=== PATIENT | male | born 1975 | race Caucasian/White ===

== ENCOUNTER 2016-11-12 12:23 | Emergency (ER) | payer BC ==
[2016-11-12] MEDS ORDERED: Morphine INJ* 4 MG/ML 1 ML SYRINGE IV ONE (14:05)
[2016-11-12] MEDS ORDERED: Pantoprazole IV* 40 MG IV ONE (14:05)
[2016-11-12] MEDS ORDERED: Ondansetron INJ* 2 MG/ML VIAL IV ONE (14:05)
[2016-11-12 14:36] LABS: Hematocrit 49 % (42-52); Hemoglobin 17.1 g/dl (14.0-18.0); Mean Corpuscular HGB Conc 35 g/dl (31-36); Mean Corpuscular Hemoglobin 34 pg (27-31); Mean Corpuscular Volume 96 fL (80-94); Mean Platelet Volume 9 um3 (7.4-10.4); Red Blood Count 5.05 10^6/ul (4.0-5.4); Red Cell Distribution Width 12 % (10.5-15); White Blood Count 8.3 10^3/ul (3.5-10.8)
[2016-11-12 14:50] LABS: Albumin 4.6 g/dL (3.2-5.2); BUN/Creatinine Ratio 19.1 (8-20); C Reactive Protein 3.87 mg/L (< 5.00); Calcium 9.5 mg/dL (8.6-10.3); EGFR African American 122.4 (>60); EGFR Non-African American 95.2 (>60); Globulin 2.9 g/dL (2-4); Magnesium 1.9 mg/dL (1.9-2.7); Total Bilirubin 1.1 mg/dL (0.2-1.0); Total Protein 7.5 g/dL (6.4-8.9)
[2016-11-12] MEDS: NS 0.9% 1000 ML* 2,000 ML IV ONE ×2 (14:50→16:07)
[2016-11-12 14:52] LABS: Troponin I 0.01 ng/mL (<0.04)
--- NOTE | 2016-11-12 14:53 | RAD ---
Indication: Right upper quadrant pain. Real-time sonography of the right upper quadrant was performed. The liver is normal in size. It measures up to 18 cm in length. No focal lesions or intrahepatic duct dilatation is noted. The gallbladder demonstrates no gallstones, pericholecystic fluid or wall thickening. The common duct measures 3.3 mm. The right kidney measures 11.7 x 5.5 x 5.1 cm. No hydronephrosis is noted. The pancreas demonstrates no mass or pancreatic duct dilatation. IMPRESSION: No evidence of cholelithiasis or biliary duct dilatation is noted.
[2016-11-12 14:54] LABS: Potassium 4.2 mmol/L (3.5-5.0)
--- NOTE | 2016-11-12 15:23 | RAD ---
Indication: Right chest discomfort. 2 views of the chest including dual energy PA views demonstrate no mediastinal shift. Heart is of normal size and configuration. Lung ruiz are clear. IMPRESSION: No active cardiopulmonary disease is noted.
[2016-11-12 15:53] LABS: Urine Bacteria Absent (Absent); Urine Bilirubin Negative (Negative); Urine Glucose Negative (Negative); Urine Nitrite Negative (Negative)
[2016-11-12 16:35] VITALS: BP 143/105
--- NOTE | 2016-11-12 16:43 | ED ---
Pepper Barnard Alok, scribed for Diann Singer MD on 11/12/16 at 1325 . Complex/Multi-Sys Presentation - HPI Summary HPI Summary: 41M presents to the ED for lung congestion for the past few weeks. Pt states what began as seasonal allergies managed by Maribel which improved his sinus congestion progressed into lung congestion worse on the right side for the past 5 days. Pt notes SOB and productive cough with white sputum. Pt denies fever or fatigue. Pt denies h/o asthma. Pt also notes RUQ aching pain for the past few weeks. Pt also notes a "choking" sensation after ingesting food for days at the same place as his RUQ pain. Pt notes new diet consisting of higher fats. Pt denies h/o abd surgery and denies h /o DVT/PE. Pt drinks ETOH heavily and denies tobacco/drugs. Pt last had ETOH yesterday. Pt has chronic back pain. - History Of Current Complaint Chief Complaint: EDGeneral Hx Obtained From: Patient Onset/Duration: Gradual Onset, Lasting Weeks, Still Present Timing: Constant Severity Currently: Moderate Severity Initially: Moderate Location: Pain At: - RUQ Aggravating Factor(s): ingesting food Associated Signs And Symptoms: Positive: SOB, Cough, Abdominal Pain, Other - Lung congestion. Negative: Fever - Allergies/Home Medications Allergies/Adverse Reactions: Allergies Allergy/AdvReac Type Severity Reaction Status Date / Time Macrolides and Ketolides Allergy GI Upset Verified 11/12/16 13:00 PMH/Surg Hx/FS Hx/Imm Hx Cardiovascular History: Denies: Hx Deep Vein Thrombosis Respiratory History: Denies: Hx Asthma Infectious Disease History: No Infectious Disease History: Denies: Traveled Outside the [place] in Last 30 Days - Family History Known Family History: Positive: Other - Yes- ETOH abuse, Gallbladder disease - Social History Occupation: Employed Full-time Lives: Alone Alcohol Use: Daily Alcohol Amount: 1/2 pint liquor per day Substance Use Type: Reports: None Hx Tobacco Use: No Smoking Status (MU): Never Smoked Tobacco Review of Systems Negative: Fever, Fatigue Positive: Shortness Of Breath, Cough, Other - lung congestion Positive: Abdominal Pain Positive: Other - back pain (chronic) All Other Systems Reviewed And Are Negative: Yes Physical Exam Triage Information Reviewed: Yes Vital Signs On Initial Exam: Initial Vitals Temp Pulse Resp BP Pulse Ox 97.7 F 115 20 170/114 98 11/12/16 12:33 11/12/16 12:33 11/12/16 12:33 11/12/16 12:33 11/12/16 12:33 Vital Signs Reviewed: Yes Appearance: Positive: Well-Appearing, No Pain Distress Skin: Positive: Warm, Skin Color Reflects Adequate Perfusion, Dry Eyes: Positive: EOMI, TANYA ENT: Positive: Pharynx normal, TMs normal Neck: Positive: Supple, Nontender Respiratory/Lung Sounds: Positive: Clear to Auscultation, Breath Sounds Present. Negative: Rales, Rhonchi, Wheezes Cardiovascular: Positive: Tachycardia, Other - No gallop. Negative: Murmur, Rub Abdomen Description: Positive: Soft, Other: - No rebound. RUQ tenderness.. Negative: Distended, Guarding Bowel Sounds: Positive: Present Musculoskeletal: Positive: Strength/ROM Intact. Negative: Edema Left, Edema Right Neurological: Positive: Sensory/Motor Intact, Alert, Oriented to Person Place, Time, CN Intact II-III Psychiatric: Positive: Affect/Mood Appropriate Diagnostics - Vital Signs Vital Signs Temp Pulse Resp BP Pulse Ox 11/12/16 13:02 108 17 169/123 97 11/12/16 13:00 98.4 F 108 13 169/123 97 11/12/16 12:48 117 97 11/12/16 12:33 97.7 F 115 20 170/114 98 - Laboratory Lab Results: Lab Results 11/12/16 11/12/16 11/12/16 Range/Units 14:20 14:20 14:20 WBC 8.3 (3.5-10.8) 10^3/ul RBC 5.05 (4.0-5.4) 10^6/ul Hgb 17.1 (14.0-18.0) g/dl Hct 49 (42-52) % MCV 96 H (80-94) fL MCH 34 H (27-31) pg MCHC 35 (31-36) g/dl RDW 12 (10.5-15) % Plt Count 159 (150-450) 10^3/ul MPV 9 (7.4-10.4) um3 Neut % (Auto) 62.5 (38-83) % Lymph % (Auto) 24.2 L (25-47) % [place] % (Auto) 7.5 (1-9) % Eos % (Auto) 5.2 (0-6) % Baso % (Auto) 0.6 (0-2) % Absolute Neuts (auto) 5.2 (1.5-7.7) 10^3/ul Absolute Lymphs (auto) 2.0 (1.0-4.8) 10^3/ul Absolute Monos (auto) 0.6 (0-0.8) 10^3/ul Absolute Eos (auto) 0.4 (0-0.6) 10^3/ul Absolute Basos (auto) 0.1 (0-0.2) 10^3/ul Absolute Nucleated RBC 0.01 10^3/ul Nucleated RBC % 0.1 D-Dimer, Quantitative (Less Than 230) ng/mL Sodium 134 (133-145) mmol/L Potassium 4.2 (3.5-5.0) mmol/L Chloride 97 L (101-111) mmol/L Carbon Dioxide 21 L (22-32) mmol/L Anion Gap 16 H (2-11) mmol/L BUN 17 (6-24) mg/dL Creatinine 0.89 (0.67-1.17) mg/dL Est GFR ( Amer) 122.4 (>60) Est GFR (Non-Af Amer) 95.2 (>60) BUN/Creatinine Ratio 19.1 (8-20) Glucose 75 (70-100) mg/dL Lactic Acid 0.7 (0.5-2.0) mmol/L Calcium 9.5 (8.6-10.3) mg/dL Magnesium 1.9 (1.9-2.7) mg/dL Total Bilirubin 1.10 H (0.2-1.0) mg/dL AST 56 H (13-39) U/L ALT 82 H (7-52) U/L Alkaline Phosphatase 49 (34-104) U/L Troponin I 0.01 (<0.04) ng/mL C-Reactive Protein 3.87 (< 5.00) mg/L Total Protein 7.5 (6.4-8.9) g/dL Albumin 4.6 (3.2-5.2) g/dL Globulin 2.9 (2-4) g/dL Albumin/Globulin Ratio 1.6 (1-3) Lipase 29 (11.0-82.0) U/L Urine Color Urine Appearance Urine pH (5-9) Ur Specific [place] (1.010-1.030) Urine Protein (Negative) Urine Ketones (Negative) Urine Blood (Negative) Urine Nitrate (Negative) Urine Bilirubin (Negative) Urine Urobilinogen (Negative) Ur Leukocyte Esterase (Negative) Urine WBC (Auto) (Absent) Urine RBC (Auto) (Absent) Ur Squamous Epith Cells (Absent) Urine Bacteria (Absent) Hyaline Casts (Absent) Urine Glucose (Negative) 11/12/16 11/12/16 Range/Units 14:20 15:40 WBC (3.5-10.8) 10^3/ul RBC (4.0-5.4) 10^6/ul Hgb (14.0-18.0) g/dl Hct (42-52) % MCV (80-94) fL MCH (27-31) pg MCHC (31-36) g/dl RDW (10.5-15) % Plt Count (150-450) 10^3/ul MPV (7.4-10.4) um3 Neut % (Auto) (38-83) % Lymph % (Auto) (25-47) % [place] % (Auto) (1-9) % Eos % (Auto) (0-6) % Baso % (Auto) (0-2) % Absolute Neuts (auto) (1.5-7.7) 10^3/ul Absolute Lymphs (auto) (1.0-4.8) 10^3/ul Absolute Monos (auto) (0-0.8) 10^3/ul Absolute Eos (auto) (0-0.6) 10^3/ul Absolute Basos (auto) (0-0.2) 10^3/ul Absolute Nucleated RBC 10^3/ul Nucleated RBC % D-Dimer, Quantitative < 200 (Less Than 230) ng/mL Sodium (133-145) mmol/L Potassium (3.5-5.0) mmol/L Chloride (101-111) mmol/L Carbon Dioxide (22-32) mmol/L Anion Gap (2-11) mmol/L BUN (6-24) mg/dL Creatinine (0.67-1.17) mg/dL Est GFR ( Amer) (>60) Est GFR (Non-Af Amer) (>60) BUN/Creatinine Ratio (8-20) Glucose (70-100) mg/dL Lactic Acid (0.5-2.0) mmol/L Calcium (8.6-10.3) mg/dL Magnesium (1.9-2.7) mg/dL Total Bilirubin (0.2-1.0) mg/dL AST (13-39) U/L ALT (7-52) U/L Alkaline Phosphatase (34-104) U/L Troponin I (<0.04) ng/mL C-Reactive Protein (< 5.00) mg/L Total Protein (6.4-8.9) g/dL Albumin (3.2-5.2) g/dL Globulin (2-4) g/dL Albumin/Globulin Ratio (1-3) Lipase (11.0-82.0) U/L Urine Color Yellow Urine Appearance Clear Urine pH 5.0 (5-9) Ur Specific [place] 1.025 (1.010-1.030) Urine Protein 1+(30 mg/dl) H (Negative) Urine Ketones 2+ H (Negative) Urine Blood Negative (Negative) Urine Nitrate Negative (Negative) Urine Bilirubin Negative (Negative) Urine Urobilinogen Negative (Negative) Ur Leukocyte Esterase Negative (Negative) Urine WBC (Auto) Absent (Absent) Urine RBC (Auto) Absent (Absent) Ur Squamous Epith Cells Present H (Absent) Urine Bacteria Absent (Absent) Hyaline Casts Present H (Absent) Urine Glucose Negative (Negative) Result Diagrams: 11/12/16 14:20 11/12/16 14:20 Lab Statement: Any lab studies that have been ordered have been reviewed, and results considered in the medical decision making process. - Radiology CXR Xray Interpretation: Positive (See Comments) - IMPRESSION: NO ACTIVE CARDIOPULMONARY DISEASE IS NOTED. Radiology Interpretation Completed By: Radiologist - EKG 1241 Cardiac Rate: Tachycardia - 113 bpm EKG Rhythm: Sinus Tachycardia EKG Interpretation: Non-specific T-waves changes - Additional Comments Diagnostic Additional Comments: Gallbladder US - IMPRESSION: No evidence of cholelithiasis or biliary duct dilatation is noted. Re-Evaluation - Re-Evaluation First Eval Re-Evaluation Time: 15:38 Change: Improved Comment: Pt feels much improved following protonics and fluids treatment Complex Multi-Symp Course/Dx Course Of Treatment: Really nice 41 year old male who drinks about 1/4 pint per day with what ends up likely being esophagitis and bronchitis. Initially his heart rate was about 100 but by the nighat of the visit it was 94 , my guess is he may have mild withdrawel although he denies ever having symptoms. We had a very nice conversation about harm reduction techniques he can use - Diagnoses Provider Diagnoses: Bronchitis, GERD (gastroesophageal reflux disease) Discharge - Discharge Plan Condition: Stable Disposition: HOME Prescriptions: Azithromyxin NAREN (NF) [Z-Naren (Zithromax) 250 mg tabs #6] 2 tab PO .TODAY, THEN 1 DAILY #6 tab DOXYcycline CAP(*) [DOXYcycline 100MG CAP(*)] 100 mg PO BID #14 cap Pantoprazole TAB (NF) [Protonix TAB (NF)] 40 mg PO DAILY #30 tab Patient Education Materials: Acute Bronchitis (ED), Gastroesophageal Reflux Disease (ED) Referrals: [facility] [place] [facility] [Outside] Non Staff,Doctor [Primary Care Provider] - The documentation as recorded by the Pepper feng Alok accurately reflects the service I personally performed and the decisions made by me, Diann Singer MD.
== END 2016-11-12 16:52 | disposition home or self-care (01) ==
LOC: ED 12:23
DX: J40 Bronchitis, not specified as acute or chronic (principal); K21.9 Gastro-esophageal reflux disease without esophagitis; R10.11 Right upper quadrant pain; R06.02 Shortness of breath; R05 Cough; M54.9 Dorsalgia, unspecified
CPT/HCPCS: 36415; 71020; 76705; 80053; 81003; 81015; 83605; 83690; 83735; 84484; 85025; 85379; 86140; 93005; 96374; 96375; 99284; J2270; J2405

== ENCOUNTER 2017-05-20 06:55 | Observation (INO) | payer BC ==
[2017-05-20] MEDS ORDERED: Ondansetron INJ* 2 MG/ML VIAL IV ONE (08:03)
[2017-05-20] MEDS ORDERED: NS 0.9% 1000 ML* 1,000 ML IV ONE (08:03)
[2017-05-20] MEDS ORDERED: Morphine INJ* 4 MG/ML 1 ML CARPUJECT IV ONE (08:03)
[2017-05-20 08:30] LABS: Comments Flag Yes; Hematocrit 46 % (42-52); Hemoglobin 16.6 g/dl (14.0-18.0); Mean Corpuscular HGB Conc 36 g/dl (31-36); Mean Corpuscular Hemoglobin 34 pg (27-31); Mean Corpuscular Volume 95 fL (80-94); Mean Platelet Volume 8 um3 (7.4-10.4); Red Blood Count 4.88 10^6/ul (4.0-5.4); Red Cell Distribution Width 13 % (10.5-15); White Blood Count 10.8 10^3/ul (3.5-10.8)
[2017-05-20 08:31] LABS: Add Diff/Slide Review? Slide Review Added
[2017-05-20 08:44] LABS: Albumin 4.2 g/dL (3.2-5.2); BUN/Creatinine Ratio 14.3 (8-20); C Reactive Protein 85.84 mg/L (< 5.00); Calcium 9.5 mg/dL (8.6-10.3); EGFR African American 143.9 (>60); EGFR Non-African American 111.9 (>60); Globulin 3.2 g/dL (2-4); Total Bilirubin 0.7 mg/dL (0.2-1.0); Total Protein 7.4 g/dL (6.4-8.9)
[2017-05-20] MEDS ORDERED: Potassium Chlor TAB* 20 MEQ TAB.ER PO ONE (09:47)
[2017-05-20] MEDS ORDERED: Iohexol 300* (CONTRAST) 10 ML SDV IV ONE (10:11)
[2017-05-20 11:00] LABS: Urine Bilirubin Negative (Negative); Urine Glucose Negative (Negative); Urine Nitrite Negative (Negative)
--- NOTE | 2017-05-20 11:05 | RAD ---
INDICATION: Lower abdominal and rectal pain. Small volume of rectal bleeding. COMPARISON: No relevant prior exams available on [place] [facility] [place]. TECHNIQUE: Multidetector CT images were obtained from the lung bases to the ischial tuberosities with 109 mL Omnipaque 300 IV and oral contrast. Multiplanar reformation. REPORT: Minimal RIGHT dependent subsegmental atelectasis. The liver, gallbladder, pancreas, and spleen are unremarkable. No CT abnormality of the upper GI, small bowel, or appendix visualized along the RIGHT pelvic sidewall. No abnormality of the colon from the cecum through the sigmoid rectal junction. At the inferior rectum and anal canal there is a retroperitoneal posterior 4.5 cm AP by 3.5 cm transverse by 3.7 cm cephalocaudal peripherally enhancing centrally hypodense lesion. Only mild increased density in the ischial rectal fat. No associated retroperitoneal or peritoneal free air evident. Negative for ascites. Small fat-containing indirect LEFT inguinal hernia without inflammatory change. Normal adrenal glands. Small cortical cyst at the lower pole of the LEFT kidney. Symmetric nephrograms and pyelograms. Negative for hydronephrosis. Unremarkable nondilated ureters and urinary bladder. Unremarkable visualized male urogenital structures. Negative for lymphadenopathy. Upper normal 1 cm short axis portal caval node noted. Normal diameter abdominal aorta and iliac arteries. Physiologic distention of the IVC. Incidental RIGHT unilateral L5 spondylolysis without associated spondylolisthesis. Negative for suspicious osseous lesions. IMPRESSION: 1. Cystic appearing retroperitoneal lesion with mildly enhancing margin posterior to the lower rectum and anal canal may represent a developmental/congenital cyst including epidermoid, dermoid, and enteric/ duplication cysts. Secondary abscess or primary abscess also possible. Colorectal tumor with microperforation and perienteric abscess not entirely excluded. 2. Negative for lymphadenopathy or suspicious lesions of the solid abdominal viscera. 3. Negative for ascites.
[2017-05-20] MEDS ORDERED: cefTRIAXone(*) 1 GM in NS 0.9% 50 ML* 50 ML IVPB ONE (11:33)
[2017-05-20] MEDS ORDERED: Sodium Citrate/Citric Acid* 15 ML UDC ONE (12:58)
[2017-05-20] MEDS ORDERED: Sodium Citrate/Citric Acid* 15 ML UDC PO ONE (13:02)
[2017-05-20] MEDS ORDERED: Morphine INJ* 2 MG/ML 1 ML SYRINGE (TWO MG - NEW SYRINGE VERSION) IV PRN (13:02)
[2017-05-20] MEDS ORDERED: HYDROcodone/ACETAMIN 5-325 MG* 1 TAB PO PRN ×2 (13:02→16:03)
[2017-05-20] MEDS ORDERED: oxyCODONE/Acetamin 5/325 MG* TAB PO PRN (13:02)
[2017-05-20] MEDS ORDERED: PROCHLORPERAZINE INJ 5 MG/ML 2 ML VIAL IV PRN (13:02)
[2017-05-20] MEDS ORDERED: fentaNYL* 50 MCG/ML 2 ML VIAL (100 MCG VIAL) IV PRN (13:02)
[2017-05-20] MEDS ORDERED: ceFAZolin 2 GM PREMIX (*) 2 GM/50 ML BAG IVPB ONE (13:03)
[2017-05-20] MEDS ORDERED: fentaNYL* 50 MCG/ML 5 ML VIAL (250 MCG VIAL) ONE (13:14)
[2017-05-20] MEDS ORDERED: Labetalol IV* 5 MG/ML 20 ML VIAL ONE (13:21)
[2017-05-20] MEDS ORDERED: Bupivacaine 0.25% SDV* 30 ML ONE (13:24)
[2017-05-20] MEDS ORDERED: Lidocaine 2% EPI 1:200000 MPF* 20 ML VIAL ONE (13:25)
[2017-05-20] MEDS ORDERED: Propofol* 10 MG/ML 20 ML BTL IV PUSH ONE (13:42)
[2017-05-20] MEDS ORDERED: Succinylcholine* 20 MG/ML 10 ML VIAL ONE (13:43)
[2017-05-20] MEDS ORDERED: Lidocaine 2% PF * 5 ML VIAL ONE (13:43)
--- NOTE | 2017-05-20 13:50 | HP ---
CC: Dr. Bobby Serrano; Dr. Param De La Cruz * HISTORY AND PHYSICAL: DATE OF ADMISSION: 05/20/17 HISTORY OF PRESENT ILLNESS: I was contacted by the emergency room to evaluate Mr. Leos, a 42-year-old gentleman who presents to [facility] Emergency Room with a 6 -day history of worsening perianal pain. The patient describes onset of symptoms this previous Sunday, feels a fullness in the perianal region and discomfort has been worsening. It is exacerbated with bowel movements. It had been alleviated with Advil and the patient has been taking a fair amount of doses of this, but is no longer working. He has been taking morphine in the emergency room and that has given him more pain control. The patient denies any fever, but has had chills at night. No nausea or vomiting. The patient denies any previous similar symptoms. On one occasion , he had some rectal bleeding a couple of days ago, but this was isolated. PAST MEDICAL HISTORY: Gastroesophageal reflux disease, asthma. PAST SURGICAL HISTORY: No surgical history. MEDICATIONS: 1. Pantoprazole. 2. Inhalers. ALLERGIES: He is allergic to MACROLIDES and KETOLIDES. FAMILY HISTORY: Contributory for father who has Crohn's disease who actually recently underwent surgery for a bowel resection. He lives in [place]. SOCIAL HISTORY: He is nonsmoker. He drinks occasionally. 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 REVIEW OF SYSTEMS: No fevers. No chills. Weight loss of approximately 50 pounds in the course of last year. The patient states that he has been trying to lose weight. He has been eating a lot less as he has been trying to kobe an ideal body weight. No fevers, but rundown and chills as described. No nausea. No vomiting. History of GERD, treated with omeprazole. The patient underwent an EGD earlier this year. Some hesitancy upon initiation of urine, but he is able to fully evacuate. He denies any abdominal pain. No bleeding or clotting disorders. No cardiovascular disease or cerebrovascular disease. PHYSICAL EXAMINATION GENERAL: He is well-appearing in no apparent distress, lying in stretcher. HEENT: Normocephalic, atraumatic. Sclerae anicteric. Mucus membranes are moist. NECK: No lymphadenopathy. LUNGS: Clear to auscultation bilaterally. ABDOMEN: Soft, nondistended, nontender. No hernias. No lymphadenopathy in the groin. No CVA tenderness. RECTAL: Perianal area appears intact without signs of infection. No fluctuance. On digital rectal exam, a mass is appreciated posteriorly. It is smooth, tender. EXTREMITIES: Within normal limits. No pitting edema. DIAGNOSTIC STUDIES/LAB DATA: The patient's labs reviewed, show a white count of 10.8. Chemistry panel has low potassium at 3 and an elevated CRP of 86. Urinalysis within normal limits. The patient underwent a CAT scan of the abdomen and pelvis. These images as well as report reviewed. No intraabdominal pathology. The patient has a rectal lesion posteriorly that measures 4.5 x 4 cm. It is enhancing and read as a cystic lesion with a large differential of duplication cyst versus abscess versus tumor. IMPRESSION: Significant perirectal pain in a patient otherwise healthy who has had significant weight loss, but this has been planned, who now has perianal lesion that may represent an abscess or something more sinister. PLAN: My recommendation at this point is exam under anesthesia, place a rigid sigmoidoscope, and identify the area, try to either biopsy or drainage or both. Differential diagnosis does include hemorrhoids and for this reason, I think the patient will be better served in the operating room for an evaluation under anesthesia because of his tenderness. He will remain n.p.o. He will receive preoperative dose of antibiotics. We will look towards treating him as need be depending on what we find. The patient understands and after discussing the risks, benefits, and alternatives for this diagnostic procedure with possibility of therapy if this is an abscess alone. The patient's questions were answered. He understands possible complications, which include but not limited to bleeding, infection, need for more procedures, possibility of diagnosis of malignancy, possible fistulization. [id number] #: [id number] [facility]
[2017-05-20] MEDS ORDERED: Levalbuterol HFA INHALER* 1 PUFF MDI ONE (13:56)
[2017-05-20] MEDS ORDERED: Dexamethasone IV* 4 MG/ML 1 ML (4 MG) ONE (13:57)
[2017-05-20] MEDS ORDERED: Ketorolac INJ* 30 MG/ML 1 ML VIAL ONE (14:00)
[2017-05-20] MEDS ORDERED: fentaNYL* 50 MCG/ML 2 ML VIAL (100 MCG VIAL) ONE (14:11)
[2017-05-20] MEDS ORDERED: Phenylephrine IV* 40 MCG/ML 10 ML SYRINGE ONE (14:21)
[2017-05-20] MEDS ORDERED: Ondansetron INJ* 2 MG/ML VIAL ONE (14:23)
--- NOTE | 2017-05-20 14:42 | SURGPN ---
Brief Operative Note - Surgery Procedures: Pre-OP Diagnoses: Perirectal pain, perianal abscess Post-op Diagnosis: perirectal abscesses Procedure: exam under anesthesia, draiunage of perirectal abscess, biopsy of polyp Surgeon: Shirlene Asst: none Anethesia: DHEERAJ Davison EBL: minimal IVF: minimal Specimen: cultures rectal biopsy Drains: 06/14" rocio drain Complications: None
[2017-05-20] MEDS ORDERED: hydrALAZINE IV* 20 MG/ML VIAL IV SLOW PU PRN ×2 (15:19→16:40)
[2017-05-20] MEDS ORDERED: hydrALAZINE IV* 20 MG/ML VIAL ONE (15:23)
[2017-05-20] MEDS ORDERED: Acetaminophen TAB* 325 MG PO PRN (16:03)
[2017-05-20] MEDS ORDERED: Ondansetron INJ* 2 MG/ML VIAL IV PRN (16:03)
[2017-05-20] MEDS ORDERED: Albuterol HFA INHALER* 8 gm MDI INH PRN (16:05)
--- NOTE | 2017-05-20 17:00 | ED ---
Pat Barnard Alfonso, scribed for Felix Matthew MD on 05/20/17 at 0743 . GI/ HPI - HPI Summary HPI Summary: This patient is a 42 year old M presenting to [facility] with a chief complaint of rectal pain since 5 or 6 days ago. He has never had this pain before. He is straining with BM. His last BM was this morning, but he will let some of the stool go and then it stops. The patient rates the pain 7/10 in severity. Symptoms aggravated by touch, ambulation, and BM. Symptoms alleviated by nothing. Patient reports blood on the stools (3 days ago). Patient denies anal sex and anal trauma. - History of Current Complaint Chief Complaint: EDRectalPain Time Seen by Provider: 05/20/17 07:21 Stated Complaint: RECTAL PAIN Hx Obtained From: Patient Onset/Duration: Started Days Ago - 5-6, Still Present Timing: Constant Severity: Moderate Pain Intensity: 7 - /10 Associated Signs and Symptoms: Positive: Other: - blood on the stools (3 days ago). Patient denies anal sex and anal trauma. Aggravating Factor(s): Palpation, Bowel Movement, Walking/Exertion Alleviating Factor(s): Nothing - Allergy/Home Medications Allergies/Adverse Reactions: Allergies Allergy/AdvReac Type Severity Reaction Status Date / Time Macrolides and Ketolides Allergy GI Upset Verified 05/20/17 07:00 PMH/Surg Hx/FS Hx/Imm Hx Cardiovascular History: Reports: Hx Hypertension Denies: Hx Deep Vein Thrombosis Respiratory History: Denies: Hx Asthma Opthamlomology History: Denies: Hx Legally Blind EENT History: Denies: Hx Deafness Infectious Disease History: No Infectious Disease History: Denies: Traveled Outside the [place] in Last 30 Days - Family History Known Family History: Positive: Other - Yes- ETOH abuse, Gallbladder disease - Social History Alcohol Use: Occasionally Alcohol Amount: "moderately" Hx Substance Use: No Substance Use Type: Reports: None Hx Tobacco Use: No Smoking Status (MU): Never Smoked Tobacco Review of Systems Negative: Fever Positive: Other - rectal pain, blood on the stools (3 days ago); negative anal sex and anal trauma. All Other Systems Reviewed And Are Negative: Yes Physical Exam - Summary Physical Exam Summary: VITAL SIGNS: Reviewed. GENERAL: Patient is a well-developed and nourished male who is lying comfortable in the stretcher. Patient is not in any acute respiratory distress. HEAD AND FACE: No signs of trauma. No ecchymosis, hematomas or skull depressions. No sinus tenderness. EYES: PERRLA, EOMI x 2, No injected conjunctiva, no nystagmus. EARS: Hearing grossly intact. Ear canals and tympanic membranes are within normal limits. MOUTH: Oropharynx within normal limits. NECK: Supple, trachea is midline, no adenopathy, no JVD, no carotid bruit, no c- spine tenderness, neck with full ROM. CHEST: Symmetric, no tenderness at palpation LUNGS: Clear to auscultation bilaterally. No wheezing or crackles. CVS: Regular rate and rhythm, S1 and S2 present, no murmurs or gallops appreciated. ABDOMEN: Soft, non-tender. No signs of distention. No rebound no guarding, and no masses palpated. Bowel sounds are normal. RECTAL: No external hemorrhoids. No anal fissures. Severe tenderness. Normal sphincter tone. No gross blood. No melena. EXTREMITIES: FROM in all major joints, no edema, no cyanosis or clubbing. NEURO: Alert and oriented x 3. No acute neurological deficits. Speech is normal and follows commands. SKIN: Dry and warm Triage Information Reviewed: Yes Vital Signs On Initial Exam: Initial Vitals Temp Pulse Resp BP Pulse Ox 98 F 100 18 170/111 100 05/20/17 06:58 05/20/17 06:58 05/20/17 06:58 05/20/17 06:58 05/20/17 06:58 Vital Signs Reviewed: Yes Diagnostics - Vital Signs Vital Signs Temp Pulse Resp BP Pulse Ox 05/20/17 06:58 98 F 100 18 170/111 100 - Laboratory Lab Results: Lab Results 05/20/17 05/20/17 05/20/17 Range/Units 08:19 08:19 08:19 WBC 10.8 (3.5-10.8) 10^3/ul RBC 4.88 (4.0-5.4) 10^6/ul Hgb 16.6 (14.0-18.0) g/dl Hct 46 (42-52) % MCV 95 H (80-94) fL MCH 34 H (27-31) pg MCHC 36 (31-36) g/dl RDW 13 (10.5-15) % Plt Count 200 (150-450) 10^3/ul MPV 8 (7.4-10.4) um3 Neut % (Auto) 77.8 (38-83) % Lymph % (Auto) 8.9 L (25-47) % [place] % (Auto) 10.0 H (1-9) % Eos % (Auto) 2.9 (0-6) % Baso % (Auto) 0.4 (0-2) % Absolute Neuts (auto) 8.4 H (1.5-7.7) 10^3/ul Absolute Lymphs (auto) 1.0 (1.0-4.8) 10^3/ul Absolute Monos (auto) 1.1 H (0-0.8) 10^3/ul Absolute Eos (auto) 0.3 (0-0.6) 10^3/ul Absolute Basos (auto) 0 (0-0.2) 10^3/ul Absolute Nucleated RBC 0.08 10^3/ul Nucleated RBC % 0.7 Sodium 137 (133-145) mmol/L Potassium 3.0 L (3.5-5.0) mmol/L Chloride 100 L (101-111) mmol/L Carbon Dioxide 30 (22-32) mmol/L Anion Gap 7 (2-11) mmol/L BUN 11 (6-24) mg/dL Creatinine 0.77 (0.67-1.17) mg/dL Est GFR ( Amer) 143.9 (>60) Est GFR (Non-Af Amer) 111.9 (>60) BUN/Creatinine Ratio 14.3 (8-20) Glucose 126 H (70-100) mg/dL Lactic Acid 1.5 (0.5-2.0) mmol/L Calcium 9.5 (8.6-10.3) mg/dL Magnesium Pending Total Bilirubin 0.70 (0.2-1.0) mg/dL AST 14 (13-39) U/L ALT 15 (7-52) U/L Alkaline Phosphatase 63 (34-104) U/L C-Reactive Protein 85.84 H (< 5.00) mg/L Total Protein 7.4 (6.4-8.9) g/dL Albumin 4.2 (3.2-5.2) g/dL Globulin 3.2 (2-4) g/dL Albumin/Globulin Ratio 1.3 (1-3) Lipase 15 (11.0-82.0) U/L TSH Pending Urine Color Urine Appearance Urine pH (5-9) Ur Specific [place] (1.010-1.030) Urine Protein (Negative) Urine Ketones (Negative) Urine Blood (Negative) Urine Nitrate (Negative) Urine Bilirubin (Negative) Urine Urobilinogen (Negative) Ur Leukocyte Esterase (Negative) Urine Glucose (Negative) 05/20/17 Range/Units 10:45 WBC (3.5-10.8) 10^3/ul RBC (4.0-5.4) 10^6/ul Hgb (14.0-18.0) g/dl Hct (42-52) % MCV (80-94) fL MCH (27-31) pg MCHC (31-36) g/dl RDW (10.5-15) % Plt Count (150-450) 10^3/ul MPV (7.4-10.4) um3 Neut % (Auto) (38-83) % Lymph % (Auto) (25-47) % [place] % (Auto) (1-9) % Eos % (Auto) (0-6) % Baso % (Auto) (0-2) % Absolute Neuts (auto) (1.5-7.7) 10^3/ul Absolute Lymphs (auto) (1.0-4.8) 10^3/ul Absolute Monos (auto) (0-0.8) 10^3/ul Absolute Eos (auto) (0-0.6) 10^3/ul Absolute Basos (auto) (0-0.2) 10^3/ul Absolute Nucleated RBC 10^3/ul Nucleated RBC % Sodium (133-145) mmol/L Potassium (3.5-5.0) mmol/L Chloride (101-111) mmol/L Carbon Dioxide (22-32) mmol/L Anion Gap (2-11) mmol/L BUN (6-24) mg/dL Creatinine (0.67-1.17) mg/dL Est GFR ( Amer) (>60) Est GFR (Non-Af Amer) (>60) BUN/Creatinine Ratio (8-20) Glucose (70-100) mg/dL Lactic Acid (0.5-2.0) mmol/L Calcium (8.6-10.3) mg/dL Magnesium Total Bilirubin (0.2-1.0) mg/dL AST (13-39) U/L ALT (7-52) U/L Alkaline Phosphatase (34-104) U/L C-Reactive Protein (< 5.00) mg/L Total Protein (6.4-8.9) g/dL Albumin (3.2-5.2) g/dL Globulin (2-4) g/dL Albumin/Globulin Ratio (1-3) Lipase (11.0-82.0) U/L TSH Urine Color Yellow Urine Appearance Clear Urine pH 7.0 (5-9) Ur Specific [place] 1.027 (1.010-1.030) Urine Protein Negative (Negative) Urine Ketones Negative (Negative) Urine Blood Negative (Negative) Urine Nitrate Negative (Negative) Urine Bilirubin Negative (Negative) Urine Urobilinogen Negative (Negative) Ur Leukocyte Esterase Negative (Negative) Urine Glucose Negative (Negative) Result Diagrams: 05/20/17 08:19 05/20/17 08:19 Lab Statement: Any lab studies that have been ordered have been reviewed, and results considered in the medical decision making process. - CT A/P CT Interpretation Completed By: Radiologist - 1. Cystic appearing retroperitoneal lesion with mildly enhancing margin posterior to the lower rectum and anal canal may represent a developmental/congenital cyst including epidermoid, dermoid, and enteric/duplication cysts. Secondary abscess or primary abscess also possible. Colorectal tumor with microperforation and perienteric abscess not entirely excluded. 2. Negative for lymphadenopathy or suspicious lesions of the solid abdominal viscera. 3. Negative for ascites. ED physician has reviewed this radiology report. GIGU Course/Dx - Course Assessment/Plan: This patient is a 42 year old M presenting to [facility] with a chief complaint of rectal pain since 5 or 6 days ago. He has never had this pain before. He is straining with BM. His last BM was this morning, but he will let some of the stool go and then it stops. The patient rates the pain 7/ 10 in severity. Symptoms aggravated by touch, ambulation, and BM. Symptoms alleviated by nothing. Patient reports blood on the stools (3 days ago). Patient denies anal sex and anal trauma. Test results with no significant abnormalities except for potassium of 3.0 for which he was given potassium chloride, and CRP of 85.8. Urinalysis negative for UTI. The patients rectal exam negative except for severe pain. There were no hemorrhoids or fissures. CT A/P reveals, per radiologist, 1. Cystic appearing retroperitoneal lesion with mildly enhancing margin posterior to the lower rectum and anal canal may represent a developmental/congenital cyst including epidermoid, dermoid, and enteric/duplication cysts. Secondary abscess or primary abscess also possible. Colorectal tumor with microperforation and perienteric abscess not entirely excluded. 2. Negative for lymphadenopathy or suspicious lesions of the solid abdominal viscera. 3. Negative for ascites. ED physician has reviewed this radiology report. In the ED course the patient was given Rocephin to cover for infection. Consulted Dr. Garber (surgeon) at 1140 who saw the patient in the ED and requested the patient be NPO. After seeing the patient in the ED, Dr. Garber admits the patient. The patient is agreeable with this plan. The patient is hemodynamically stable, alert and oriented x3. - Diagnoses Provider Diagnoses: Rectal pain, Rectal abscess - Physician Notifications Discussed Care Of Patient With: Hira Garber Time Discussed With Above Provider: 11:40 Instructed by Provider To: Other - Consulted Dr. Garber (surgeon) at 1140 who will see the patient in the ED and requests the patient be NPO. After seeing the patient in the ED, Dr. Garber admits the patient. Discharge - Discharge Plan Condition: Good Disposition: ADMITTED TO [facility] documentation as recorded by the Pat feng Alfonso accurately reflects the service I personally performed and the decisions made by ks, Felix Matthew MD.
[2017-05-20 17:11] LABS: Magnesium 1.9 mg/dL (1.9-2.7)
[2017-05-20 17:29] LABS: TSH (Thyroid Stimulating Horm) 0.44 mcIU/mL (0.34-5.60)
[2017-05-20] MEDS ORDERED: Levofloxacin 500 MG IVPREMIX(* 500 MG/100 ML BAG IVPB SCH (18:30)
[2017-05-20] MEDS ORDERED: metroNIDAZOLE IV 500 MG/100ML* 500 MG/100 ML BAG IVPB ONE (18:30)
[2017-05-20] MEDS: amLODIPine TAB* 5 MG PO SCH (18:52)
[2017-05-20] MEDS: oxyCODONE/Acetamin 5/325 MG* TAB PO PRN ×2 (19:43→23:40)
--- NOTE | 2017-05-21 01:10 | CONS ---
CC: Dr. Garber * MEDICAL CONSULTATION REPORT: DATE OF CONSULT: 05/20/17 REQUESTING PROVIDER: Dr. Hira Garber. CONSULTING PROVIDER: JUAN LUIS Yeung SUPERVISING PHYSICIAN: Dr. Sherita Grimaldo. REASON FOR CONSULT: Hypertension. HISTORY OF PRESENT ILLNESS: This is a 42-year-old gentleman with history of mild persistent asthma and GERD, who presented to the emergency department earlier today with complaints of perianal pain. He was evaluated by surgeon, Dr. Hira Garber, who took him to the operating room for further evaluation and incision and drainage of perirectal abscess. The patient was noted to be hypertensive in the emergency department and rather persistently pre and postoperatively. Because of this hypertension, hospitalist group was asked to consult. The patient states that he has only rarely sought medical care. The couple of times that he has been evaluated, he was told that his blood pressure was high but never high enough to initiate antihypertensive medications and he does not see a primary provider on a regular basis. He denies any complaints of chest pain, shortness of breath. He does have an occasional cough, which he blames to his asthma and allergies. He is having some mild abdominal pain postprocedure, but no nausea or vomiting. He does use daily antihistamine for treatment of his allergies, but denies any use of [id number] stimulant medications including use of phenylephrine or pseudoephedrine. The patient reports that his pain is well controlled at the time of evaluation and has improved since he presented in the emergency department early this morning. The patient was seen by Dr. De La Cruz earlier this year for an EGD due to complaints of abdominal pain, it was at that point that he was placed on a PPI. Review of records from his EGD demonstrates that he was hypertensive at that time as well with again systolic pressures of approximately 160 to 170 mmHg and diastolic pressures of about 90 to 100. PAST MEDICAL HISTORY: 1. GERD. 2. Mild persistent asthma. PAST SURGICAL HISTORY: [place] teeth extraction. HOME MEDICATIONS: 1. Albuterol inhaler 2 puffs inhaled q.6 hours as needed for shortness of breath. 2. Protonix 40 mg p.o. daily. 3. Maribel daily. SOCIAL HISTORY: The patient has a [id number] smoking history, but quit 5 to 6 years ago. He consumes 3 to 4 beers in a sitting approximately twice weekly in social situation. He denies any illicit drug use and specifically denies stimulant consumption. REVIEW OF SYSTEMS: As noted above in the HPI. All other systems reviewed and considered negative. PHYSICAL EXAM: Initial vitals: Temperature 98 degrees Fahrenheit, pulse is 100 beats per minute, respiratory rate 18 per minute, oxygen saturation 100% on room air, and blood pressure 170/111 mmHg. Most recent vitals following hydralazine, temperature 97.9 degrees Fahrenheit, pulse 88 beats per minute, respiratory rate 16, oxygen saturation 96% on room air, and blood pressure 144/ 107 mmHg. General: This is a very pleasant and alert 42-year-old male, in no acute distress, lying comfortably on the hospital stretcher. HEENT: Head is normocephalic, atraumatic. Mucous membranes are pink and moist. Neck: Neck is supple, free of lymphadenopathy. No significant JVD. Cardiovascular: Heart has regular rate and rhythm without murmurs, rubs, or gallops. Respiratory: Lungs are clear to auscultation without wheezes, crackles, or rhonchi. Abdomen : Abdomen is soft with slightly hyperactive bowel sounds. It is somewhat diffusely tender to palpation. Extremities: No edema appreciated and peripheral pulses intact. Skin: Limited exam. He has no concerning rashes or lesions. DIAGNOSTIC STUDIES/LAB DATA: CBC shows white blood cell count of 10,800, hemoglobin 16.6 g/dL, platelet count 200,000. Chemistry panel showed sodium of 137 mmol/L, potassium 3.0, BUN 11, creatinine 0.77, random glucose of 126 mg/ dL. Lactic acid normal at 1.5. Magnesium is pending. CRP elevated at 85. Transaminases, total bilirubin within normal limits. TSH is pending. Urinalysis is unremarkable, specifically no proteinuria. Imaging: CT of the abdomen and pelvis is read as cystic-appearing retroperitoneal lesion with mildly enhancing margin posterior to the lower rectum and anal canal, which may represent developmental or congenital cyst including epidermoid, dermoid, and enteric duplication cyst. Secondary abscess or primary abscess is also possible. Colorectal tumor with microperforation and perienteric abscess not entirely excluded. ASSESSMENT AND PLAN: This is a 42-year-old gentleman with gastroesophageal reflux disease and mild persistent asthma, who hospitalist group was asked to evaluate postoperatively following incision and drainage of perirectal abscess for hypertension. 1. Perirectal abscess - management per surgical team. 2. Hypertension - this appears to be most likely a chronic issue. The patient has no active cardiac complaints. EKG has been ordered. The patient received 1 dose of hydralazine postoperatively, which he seemed to have a positive response to. The patient will be observed overnight. Recommend telemetry monitoring. We will empirically start amlodipine at 5 mg daily. Based on review of his blood pressures during the time of endoscopy earlier this year, it seems that the patient's blood pressure has been persistently high and the patient would benefit from a more thorough workup for secondary hypotension as he does appear to be otherwise fit and is relatively young. The patient will need help establishing with primary care provider, which can be completed at the time of discharge. 3. Hypokalemia - the patient received oral potassium replacements in the emergency department. Consider hyperaldosteronism to potentially explain hypokalemia and hypertension but it appears that labs from earlier this year showed normal potassium and he was hypertensive at that time as well. We will plan to repeat basic metabolic panel in the morning and check magnesium level. 4. Asthma - mild persistent based on the patient's description of control, he would probably benefit from an inhaled corticosteroid, which can be discussed at the time of discharge and/or with new primary care provider. 5. Gastroesophageal reflux disease - plan to continue his PPI. 6. Code status - the patient is full code. 7. DVT prophylaxis - per Surgery. 8. Disposition: General surgeon, Dr. Garber, is planning to admit to observation. Hospitalist group will continue to follow along, anticipate readiness for discharge tomorrow. JUAN LUIS YEUNG [id number]/CARSON #: [id number] DEE DEE
[2017-05-21] MEDS: metroNIDAZOLE IV 500 MG/100ML* 500 MG/100 ML BAG IVPB SCH ×2 (02:29→10:47)
[2017-05-21] MEDS: oxyCODONE/Acetamin 5/325 MG* TAB PO PRN (03:48)
[2017-05-21 06:04] LABS: BUN/Creatinine Ratio 14.3 (8-20); EGFR African American 181.4 (>60); EGFR Non-African American 141.1 (>60); Potassium 3.7 mmol/L (3.5-5.0)
[2017-05-21] MEDS ORDERED: Ibuprofen TAB* 600 MG PO PRN (08:15)
--- NOTE | 2017-05-21 08:53 | PN ---
Progress Note - Progress Note Date of Service: 05/21/17 SOAP: Subjective: Patient seen and examined at bedside. Reports occasional moderate rectal pain, relived with analgesics. Ambulatory. Denies headaches, chest pain or SOB. Fever this AM. Objective: Awake and alert, comfortable on bed, in NAD Vitals reviewed, Tmax 101.3, BP 147/102 Lungs CTA Heart sinus tachy, no murmurs Perirectal exam with mild induration and tenderness noted. No erythema, bleeding or discharge. [place] drain secured. Normal sphincter tone. Labs noted, no CBC drawn Assessment: POD#1, s/p incision and drainage of perirectal abscess Plan: Continue IV Abx Fever this AM, negative blood cultures, will obtain a CBC Hypertension, probably chronic, will discuss with hospitalist possible antihypertensive agent upon d/c Pain management Ambulate Possible d/c to home later this afternoon.
[2017-05-21] MEDS ORDERED: Budesonide Flexhaler 180 (NF) 180 MCG/ACT MDI INH SCH (09:00)
[2017-05-21] MEDS ORDERED: Influenza VAC *QUAD* 2017-18* 0.5 ML SYRINGE IM ONE (09:00)
[2017-05-21] MEDS ORDERED: Omeprazole CAP* 20 MG PO SCH (09:00)
[2017-05-21] MEDS ORDERED: Docusate CAP* 100 MG PO SCH (09:00)
[2017-05-21] MEDS: amLODIPine TAB* 5 MG PO SCH (09:03)
--- NOTE | 2017-05-21 10:13 | PN ---
Subjective Date of Service: 05/21/17 Interval History: This is a 42 yo male with asthma and GERD who underwent I&D of perirectal abscess yesterday. Hospitalist group consulted due to hypertension. Patient was started on amlodipine yesterday evening. Denies CP, SOB, abd pain, n/v. Still having some mild pain in the perirectal area today and febrile this am. Objective Active Medications: Acetaminophen (Tylenol Tab*) 650 mg PO Q4H PRN PRN Reason: Pain Or Temperature >101 F Last Admin: 05/21/17 08:04 Dose: 650 mg Hydrocodone Bitart/Acetaminophen (Vina 5-325 Tab*) 1 tab PO Q4H PRN PRN Reason: PAIN - MODERATE Albuterol (Ventolin Hfa Inhaler*) 2 puff INH Q6H PRN PRN Reason: WHEEZING Amlodipine Besylate (Norvasc Tab*) 5 mg PO DAILY [facility] Last Admin: 05/21/17 09:03 Dose: 5 mg Docusate Sodium (Colace Cap*) 100 mg PO BID [facility] Last Admin: 05/21/17 09:03 Dose: 100 mg Hydralazine HCl (Apresoline Iv*) 5 mg IV SLOW PU Q6H PRN PRN Reason: sBP >170 mmHg Levofloxacin/Dextrose (Levaquin 500 Mg Ivpremix(*)) 500 mg in 100 mls @ 100 mls /hr IVPB Q24H [facility] Last Admin: 05/20/17 19:40 Dose: 100 mls/hr Lactated Ringer's (Lactated Ringers 1000 Ml Bag*) 1,000 mls @ 50 mls/hr IV .per rate [facility] Metronidazole/Sodium Chloride (Flagyl 500 Mg Ivpb*) 500 mg in 100 mls @ 100 mls /hr IVPB Q8H [facility] Last Admin: 05/21/17 02:29 Dose: 100 mls/hr Ibuprofen (Motrin Tab*) 600 mg PO Q6H PRN PRN Reason: PAIN Last Admin: 05/21/17 09:54 Dose: 600 mg Omeprazole (Prilosec Cap*) 20 mg PO DAILY [facility] Last Admin: 05/21/17 09:03 Dose: 20 mg Ondansetron HCl (Zofran Inj*) 4 mg IV Q4H PRN PRN Reason: NAUSEA/VOMITING Oxycodone/Acetaminophen (Percocet 5/325 Tab*) 1 tab PO Q4H PRN PRN Reason: PAIN Last Admin: 05/21/17 03:48 Dose: 1 tab Vital Signs: Temp Pulse Resp BP Pulse Ox 101.3 F 108 20 147/102 95 05/21/17 07:36 05/21/17 07:36 05/21/17 07:48 05/21/17 07:36 05/21/17 07:36 Oxygen Devices in Use Now: None Appearance: Mildly ill appearing 42 yo gentleman in NAD Respiratory: Symmetrical Chest Expansion and Respiratory Effort, Clear to Auscultation Cardiovascular: NL Sounds; No Murmurs; No JVD, RRR Abdominal: NL Sounds; No Tenderness; No Distention Extremities: No Edema Skin: No Rash or Ulcers Neurological: Alert and Oriented x 3 Result Diagrams: 05/20/17 08:19 05/21/17 05:07 Additional Lab and Data: . Assess/Plan/Problems-Billing Assessment: This is a pleasant 42 yo male with GERD and asthma who underwent I&D of perirectal abscess. Hospitalist group consulted for HTN management. - Patient Problems (1) Perirectal abscess Comment: s/p I&D with Dr Garber Management per surgery team Cont Levaquin/Flagyl (2) Hypertension Comment: Suspect that most of the HTN observed is chronic and likely exacerbated by acute illness and pain EKG is WNL, nl TSH Recommend outpt workup for secondary HTN Good response to amlodipine Recommend d/c with 5mg amlodipine, this will likely require further titration and/or addition of a 2nd drug (3) GERD (gastroesophageal reflux disease) Comment: Cont PPI (4) Asthma Comment: Mild-persistent No acute exacerbation Cont antihistamine and prn albuterol (5) Full code status (6) DVT prophylaxis Comment: SCDs per surgery Status and Disposition: Discharge planning per surgery. No acute medical concerns that requires additional hospitalization. Requires close f/u with PCP for additional w/u and titration of medications.
[2017-05-21 10:30] LABS: Hematocrit 40 % (42-52); Hemoglobin 14.1 g/dl (14.0-18.0); Mean Corpuscular HGB Conc 36 g/dl (31-36); Mean Corpuscular Hemoglobin 34 pg (27-31); Mean Corpuscular Volume 95 fL (80-94); Mean Platelet Volume 8 um3 (7.4-10.4); Red Blood Count 4.17 10^6/ul (4.0-5.4); Red Cell Distribution Width 12 % (10.5-15); White Blood Count 10.5 10^3/ul (3.5-10.8)
--- NOTE | 2017-05-21 10:47 | PN ---
Progress Note - Progress Note Date of Service: 05/21/17 SOAP: Subjective: This is a 42 yo male with a history of GERD and asthma, who presented to the ED c/o rectal pain. A CT of the abd/pelvis revealed what could be a cyst or tumor or abscess. Patient had an I&D of the abscess on 05/[address] Garber. The hospitalist group was consulted d/t HTN, with a systolic pressure in the 140s-160s. Patient was started on Amlodipine 5 mg daily. Today, patient seems well other than reporting a moderate amount of pain around the surgical site as well as a mild fever. Patient denies CP, palpitations, chest pressure or tightness, SOB, coughing, wheezing, abdominal pain, N/V/D. Objective: Vital Signs Temp Pulse Resp BP Pulse Ox 101.3 F 108 20 147/102 95 05/21/17 07:36 05/21/17 07:36 05/21/17 07:48 05/21/17 07:36 05/21/17 07:36 Laboratory Results - last 24 hr 05/20/17 05/20/17 05/21/17 08:19 10:45 05:07 WBC RBC Hgb Hct MCV MCH MCHC RDW Plt Count MPV Neut % (Auto) Lymph % (Auto) [place] % (Auto) Eos % (Auto) Baso % (Auto) Absolute Neuts (auto) Absolute Lymphs (auto) Absolute Monos (auto) Absolute Eos (auto) Absolute Basos (auto) Absolute Nucleated RBC Nucleated RBC % Sodium 137 137 Potassium 3.0 L 3.7 Chloride 100 L 101 Carbon Dioxide 30 31 Anion Gap 7 5 BUN 11 9 Creatinine 0.77 0.63 L Est GFR ( Amer) 143.9 181.4 Est GFR (Non-Af Amer) 111.9 141.1 BUN/Creatinine Ratio 14.3 14.3 Glucose 126 H 133 H Calcium 9.5 9.0 Magnesium 1.9 Total Bilirubin 0.70 AST 14 ALT 15 Alkaline Phosphatase 63 C-Reactive Protein 85.84 H Total Protein 7.4 Albumin 4.2 Globulin 3.2 Albumin/Globulin Ratio 1.3 Lipase 15 TSH 0.44 Urine Color Yellow Urine Appearance Clear Urine pH 7.0 Ur Specific [place] 1.027 Urine Protein Negative Urine Ketones Negative Urine Blood Negative Urine Nitrate Negative Urine Bilirubin Negative Urine Urobilinogen Negative Ur Leukocyte Esterase Negative Urine Glucose Negative 05/21/17 10:22 WBC 10.5 RBC 4.17 Hgb 14.1 Hct 40 L MCV 95 H MCH 34 H MCHC 36 RDW 12 Plt Count 165 MPV 8 Neut % (Auto) 81.0 Lymph % (Auto) 8.2 L [place] % (Auto) 10.2 H Eos % (Auto) 0.2 Baso % (Auto) 0.4 Absolute Neuts (auto) 8.5 H Absolute Lymphs (auto) 0.9 L Absolute Monos (auto) 1.1 H Absolute Eos (auto) 0 Absolute Basos (auto) 0 Absolute Nucleated RBC 0 Nucleated RBC % 0 Sodium Potassium Chloride Carbon Dioxide Anion Gap BUN Creatinine Est GFR ( Amer) Est GFR (Non-Af Amer) BUN/Creatinine Ratio Glucose Calcium Magnesium Total Bilirubin AST ALT Alkaline Phosphatase C-Reactive Protein Total Protein Albumin Globulin Albumin/Globulin Ratio Lipase TSH Urine Color Urine Appearance Urine pH Ur Specific [place] Urine Protein Urine Ketones Urine Blood Urine Nitrate Urine Bilirubin Urine Urobilinogen Ur Leukocyte Esterase Urine Glucose Active Medications Acetaminophen (Tylenol Tab*) 650 mg PO Q4H PRN PRN Reason: Pain Or Temperature >101 F Last Admin: 05/21/17 08:04 Dose: 650 mg Hydrocodone Bitart/Acetaminophen (Ullin 5-325 Tab*) 1 tab PO Q4H PRN PRN Reason: PAIN - MODERATE Albuterol (Ventolin Hfa Inhaler*) 2 puff INH Q6H PRN PRN Reason: WHEEZING Amlodipine Besylate (Norvasc Tab*) 5 mg PO DAILY [facility] Last Admin: 05/21/17 09:03 Dose: 5 mg Docusate Sodium (Colace Cap*) 100 mg PO BID [facility] Last Admin: 05/21/17 09:03 Dose: 100 mg Hydralazine HCl (Apresoline Iv*) 5 mg IV SLOW PU Q6H PRN PRN Reason: sBP >170 mmHg Levofloxacin/Dextrose (Levaquin 500 Mg Ivpremix(*)) 500 mg in 100 mls @ 100 mls /hr IVPB Q24H [facility] Last Admin: 05/20/17 19:40 Dose: 100 mls/hr Lactated Ringer's (Lactated Ringers 1000 Ml Bag*) 1,000 mls @ 50 mls/hr IV .per rate DAISY Metronidazole/Sodium Chloride (Flagyl 500 Mg Ivpb*) 500 mg in 100 mls @ 100 mls /hr IVPB Q8H DAISY Last Admin: 05/21/17 02:29 Dose: 100 mls/hr Ibuprofen (Motrin Tab*) 600 mg PO Q6H PRN PRN Reason: PAIN Last Admin: 05/21/17 09:54 Dose: 600 mg Omeprazole (Prilosec Cap*) 20 mg PO DAILY [facility] Last Admin: 05/21/17 09:03 Dose: 20 mg Ondansetron HCl (Zofran Inj*) 4 mg IV Q4H PRN PRN Reason: NAUSEA/VOMITING Oxycodone/Acetaminophen (Percocet 5/325 Tab*) 1 tab PO Q4H PRN PRN Reason: PAIN Last Admin: 05/21/17 03:48 Dose: 1 tab General: Diaphoretic WDWN male in NAD. HEENT: Mucous membranes moist and pink. CV: Tachycardic, w/o MRG. Respiratory: CTA BL w/o RRW GI: Abdomen is soft, non-distended and non-tender to palpation. Extremities: W/o edema Assessment: This is a 42 yo male with a history of GERD and asthma who is SP I& D of a perirectal abscess on 05/[address] Garber. The hospitalist group was consulted for HTN. Plan: 1. SP I&D of perirectal abscess: Care per general surgery group. Continue abx therapy. 2. HTN: Amlodipine 5 mg daily, pt. to FU outpatient with PCP to monitor BP. 3. GERD: Continue PPI therapy 4. Asthma: Well-controlled with antihistamine and rare use of rescue inhaler. Pt. to continue both medications.
[2017-05-21 12:33] VITALS: BP 109/68
--- NOTE | 2017-05-30 01:10 | DS ---
CC: Dr. Castillo Quiroz; [facility] * DISCHARGE SUMMARY: DATE OF ADMISSION: 05/20/17 DATE OF DISCHARGE: 05/21/17 HOSPITAL COURSE: Mr. Leos is a 42-year-old gentleman without a primary care physician, who presented to the emergency room on 05/20/17 with severe perianal pain. The patient had a past medical history of GERD and asthma and took inhalers and pantoprazole. It is unclear who wrote the prescriptions for this. He was diagnosed with a rectal lesion that was consistent with fluid and I took him to the OR for exam under anesthesia. Please see separate operative report for details, but namely the patient had a supralevator abscess that was drained back into the rectum and a [place] drain placed in the postoperative period. The plan was to send the patient home from the PACU where it was noted that he had hypertension. He required medication for treatment and determination was that the patient should stay in the night and be placed on antihypertensives. I asked the hospitalist service to consult and they did. They saw him and made recommendations and by the following day, the patient was ready for discharge. We did give him a dose of IV antibiotics while hospitalized, treated his hypertension and he was discharged home with a drain in the rectal abscess and on narcotics for pain management. I sent him home with prescription for both ciprofloxacin 500 b.i.d. and with Flagyl 500 t.i.d. He was given recommendation of Colace and Norvasc 5 mg daily with his recommendation from the hospitalist service. He restarted his other medications and was discharged on 05/21/17 for planned followup. [id number]/[facility] #: [id number] DEE DEE
--- NOTE | 2017-05-30 01:19 | OP ---
DATE OF OPERATION: 05/20/17 - ROOM #331 DATE OF : 79 SURGEON: Hira Garber MD JACK SETTER: None. ANESTHESIOLOGIST: Dr. Davison. ANESTHESIA: General. PRE-OP DIAGNOSIS: Perirectal pain and perianal abscess. POST-OP DIAGNOSIS: Perianal abscess. OPERATIVE PROCEDURE: Exam under anesthesia and drainage of perirectal abscess and biopsy of polyp. ESTIMATED BLOOD LOSS: Minimal. FLUIDS: Minimal crystalloid fluid given. SPECIMENS: 1. Cultures. 2. Rectal biopsy. DRAINS: A 0.25 inch Milena drain. COMPLICATIONS: None. DESCRIPTION OF PROCEDURE: The patient was seen through the emergency room with complaints of significant perianal pain. Workup included a CAT scan and labs were suggestive of a lesion that was fluid contained at the area of the posterior rectum. Decision was made to take the patient to the OR for a full evaluation. We obtained consent and took the patient to the OR where after general anesthesia was induced, the patient was placed in a lithotomy position. Perineum was prepped with Betadine. The patient was draped and a time-out was performed. Digital rectal exam was performed and fluctuance was identified posteriorly. I was able to put an anal retractor and identified purulent drainage. The area of the purulent drainage was above the dentate line. I used scalpel to increase the size of the opening and with finger dissection bluntly broke up loculations posterior to the rectum above the elevators on both left and right side. Copious pus was drained, cultures were taken. The mucosa was somewhat boggy and there was concern for the potential of a lesion at the CAT scan and for this reason, I performed a small biopsy of the rectal mucosa to send for pathology. Next, we irrigated the wound and placed a 0.25 inch Milena drain and sutured it to the rectal mucosa. The patient tolerated the procedure well, was awoken up and transferred to the PACU in stable condition. [id number]/[facility] #: [id number] [facility]
== END 2017-05-21 12:35 | disposition home or self-care (01) ==
LOC: ED 06:55 → OR 13:17 → SSU 17:22
PROVIDERS: ADMIT Surgery; ATTEND Surgery
DX: K62.1 Rectal polyp (principal); J45.909 Unspecified asthma, uncomplicated; K21.9 Gastro-esophageal reflux disease without esophagitis
CPT/HCPCS: 36415; 74177; 80048; 80053; 81003; 82270; 83605; 83690; 83735; 84443; 85025; 86140; 87040; 87070; 87073; 87076; 87077; 87184; 87186; 87205; 88305; 90686; 93005; 96374; 96375; 99283; A9270-GY; G0378; J0330; J0360; J0690; J0696; J1100; J1885; J1956; J2270; J2405; J2704; J3010; J3490; Q9967

== ENCOUNTER 2017-12-07 16:24 | Observation (INO) | payer BC ==
[2017-12-07 17:31] LABS: ABS Basophils 0 10^3/ul (0-0.2); ABS Eosinophils 0.2 10^3/ul (0-0.6); ABS Lymphocytes 1.3 10^3/ul (1.0-4.8); ABS Monocytes 0.6 10^3/ul (0-0.8); ABS Neutrophils 4.8 10^3/ul (1.5-7.7); ABS Nucleated RBC 0 10^3/ul; Hematocrit 43 % (42-52); Hemoglobin 14.9 g/dl (14.0-18.0); Lymphocyte % 19.1 % (25-47); Mean Corpuscular HGB Conc 35 g/dl (31-36); Mean Corpuscular Hemoglobin 33 pg (27-31); Mean Corpuscular Volume 95 fL (80-94); Mean Platelet Volume 8.2 um3 (7.4-10.4); Nucleated Red Blood Cells % 0; Platelet Count 198 10^3/ul (150-450); Red Blood Count 4.49 10^6/ul (4.00-5.40); Red Cell Distribution Width 13 % (10.5-15); White Blood Count 6.9 10^3/ul (3.5-10.8)
[2017-12-07] MEDS ORDERED: NS 0.9% 1000 ML* 1,000 ML IV ONE (18:10)
[2017-12-07] MEDS ORDERED: chlordiazePOXIDE CAP* 25 MG PO ONE ×2 (18:17→18:23)
[2017-12-07 19:28] LABS: Urine Appearance Cloudy; Urine Blood Negative (Negative); Urine Color Yellow; Urine Ketones Negative (Negative); Urine Protein Negative (Negative); Urine Specific Gravity 1.016 (1.010-1.030); Urine Urobilinogen Negative (Negative)
--- NOTE | 2017-12-07 19:53 | ED ---
Altered Mental Status - HPI Summary HPI Summary: Patient with history of 8-10 drinks every night for over 3 years complains of anxiety since stopping cold turkey 2 days ago. Patient does admit to 1 16 ounce can of beer last night, and a couple sips of liquor today after panic attacks 2 lasting 30 seconds each. No active panic attack here in the ED. Denies fever, HESTER, N/V, seizures, hallucinations, tremors, abdominal pain, SI, HI , CP, SOB, change in urinary BM. Patient eating and drinking normally. Patient had initial interview with [place] [facility], and has an appointment starting next Sunday to start outpatient treatment. Patient was told by [facility] to come to the ED if he started showing withdrawal symptoms. Medical history is HTN, EtOH abuse. Nonsmoker, which is nicotine gum. Denies use of illegal drugs. - History Of Current Complaint Chief Complaint: EDGeneral Stated Complaint: ANXIETY Time Seen by Provider: 12/07/17 17:32 Hx Obtained From: Patient Onset/Duration: Resolved Timing: Intermittent Severity Initially: Mild Severity Currently: None Aggravating Factor(s): Other - EtOH Associated Signs And Symptoms: Positive: Negative - Allergies/Home Medications Allergies/Adverse Reactions: Allergies Allergy/AdvReac Type Severity Reaction Status Date / Time MS Macrolides and Ketolides AdvReac GI Upset Verified 05/20/17 17:59 [Macrolides and Ketolides] Home Medications: Home Medications amLODIPine TAB* [Norvasc 5 mg TAB*] 5 mg PO DAILY 12/07/17 [History Confirmed ] PMH/Surg Hx/FS Hx/Imm Hx Endocrine/Hematology History: Denies: Hx Anticoagulant Therapy Cardiovascular History: Reports: Hx Hypertension Denies: Hx Cardiac Arrest, Hx Deep Vein Thrombosis Respiratory History: Denies: Hx Asthma History: Denies: Hx Dialysis Sensory History: Denies: Hx Legally Blind, Hx Deafness Opthamlomology History: Denies: Hx Legally Blind Neurological History: Denies: Hx CVA Infectious Disease History: No Infectious Disease History: Denies: Traveled Outside the [place] in Last 30 Days - Family History Known Family History: Positive: Other - Yes- ETOH abuse, Gallbladder disease - Social History Alcohol Use: Daily Alcohol Amount: 8-10 beers daily Hx Substance Use: No Substance Use Type: Reports: None Hx Tobacco Use: No Smoking Status (MU): Never Smoked Tobacco Review of Systems Constitutional: Negative Eyes: Negative ENT: Negative Cardiovascular: Negative Respiratory: Negative Gastrointestinal: Negative Genitourinary: Negative Musculoskeletal: Negative Skin: Negative Neurological: Negative Positive: Anxious All Other Systems Reviewed And Are Negative: Yes Physical Exam - Summary Physical Exam Summary: Patient nontoxic appearing. Very mild facial glistening. Mild observable tremor to bilateral hands. Patient alert and oriented, responding appropriately. Triage Information Reviewed: Yes Vital Signs On Initial Exam: Initial Vitals Temp Pulse Resp BP Pulse Ox 98.3 F 117 20 173/113 96 12/07/17 16:32 12/07/17 16:32 12/07/17 16:32 12/07/17 16:32 12/07/17 16:32 Vital Signs Reviewed: Yes Appearance: Positive: Well-Appearing Skin: Positive: Warm Head/Face: Positive: Normal Head/Face Inspection Eyes: Positive: Normal Neck: Positive: Supple Respiratory/Lung Sounds: Positive: Clear to Auscultation Cardiovascular: Positive: Tachycardia Abdomen Description: Positive: Nontender Musculoskeletal: Positive: Normal Neurological: Positive: Normal Psychiatric: Positive: Normal AVPU Assessment: Alert - Bandar Coma Scale Best Eye Response: 4 - Spontaneous Best Motor Response: 6 - Obeys Commands Best Verbal Response: 5 - Oriented Coma Scale Total: 15 Diagnostics - Vital Signs Vital Signs Temp Pulse Resp BP Pulse Ox 12/07/17 18:53 22 12/07/17 18:41 20 12/07/17 16:32 98.3 F 117 20 173/113 96 - Laboratory Lab Results: Lab Results 12/07/17 12/07/17 12/07/17 Range/Units 17:25 17:25 17:25 WBC 6.9 (3.5-10.8) 10^3/ul RBC 4.49 (4.00-5.40) 10^6/ul Hgb 14.9 (14.0-18.0) g/dl Hct 43 (42-52) % MCV 95 H (80-94) fL MCH 33 H (27-31) pg MCHC 35 (31-36) g/dl RDW 13 (10.5-15) % Plt Count 198 (150-450) 10^3/ul MPV 8.2 (7.4-10.4) um3 Neut % (Auto) 68.8 (38-83) % Lymph % (Auto) 19.1 L (25-47) % [place] % (Auto) 8.6 H (0-7) % Eos % (Auto) 3.0 (0-6) % Baso % (Auto) 0.5 (0-2) % Absolute Neuts (auto) 4.8 (1.5-7.7) 10^3/ul Absolute Lymphs (auto) 1.3 (1.0-4.8) 10^3/ul Absolute Monos (auto) 0.6 (0-0.8) 10^3/ul Absolute Eos (auto) 0.2 (0-0.6) 10^3/ul Absolute Basos (auto) 0 (0-0.2) 10^3/ul Absolute Nucleated RBC 0 10^3/ul Nucleated RBC % 0 Sodium 139 (135-145) mmol/L Potassium 4.1 (3.5-5.0) mmol/L Chloride 101 (101-111) mmol/L Carbon Dioxide 30 (22-32) mmol/L Anion Gap 8 (2-11) mmol/L BUN 16 (6-24) mg/dL Creatinine 0.69 (0.67-1.17) mg/dL Est GFR ( Amer) 153.7 (>60) Est GFR (Non-Af Amer) 127.0 (>60) BUN/Creatinine Ratio 23.2 H (8-20) Glucose 114 H (70-100) mg/dL Lactic Acid 1.0 (0.5-2.0) mmol/L Calcium 10.0 (8.6-10.3) mg/dL Magnesium 1.9 (1.9-2.7) mg/dL Total Bilirubin 0.80 (0.2-1.0) mg/dL AST 44 H (13-39) U/L ALT 63 H (7-52) U/L Alkaline Phosphatase 46 (34-104) U/L Total Protein 7.9 (6.4-8.9) g/dL Albumin 4.7 (3.2-5.2) g/dL Globulin 3.2 (2-4) g/dL Albumin/Globulin Ratio 1.5 (1-3) Urine Color Urine Appearance Urine pH (5-9) Ur Specific [place] (1.010-1.030) Urine Protein (Negative) Urine Ketones (Negative) Urine Blood (Negative) Urine Nitrate (Negative) Urine Bilirubin (Negative) Urine Urobilinogen (Negative) Ur Leukocyte Esterase (Negative) Urine Glucose (Negative) 12/07/17 Range/Units 18:58 WBC (3.5-10.8) 10^3/ul RBC (4.00-5.40) 10^6/ul Hgb (14.0-18.0) g/dl Hct (42-52) % MCV (80-94) fL MCH (27-31) pg MCHC (31-36) g/dl RDW (10.5-15) % Plt Count (150-450) 10^3/ul MPV (7.4-10.4) um3 Neut % (Auto) (38-83) % Lymph % (Auto) (25-47) % [place] % (Auto) (0-7) % Eos % (Auto) (0-6) % Baso % (Auto) (0-2) % Absolute Neuts (auto) (1.5-7.7) 10^3/ul Absolute Lymphs (auto) (1.0-4.8) 10^3/ul Absolute Monos (auto) (0-0.8) 10^3/ul Absolute Eos (auto) (0-0.6) 10^3/ul Absolute Basos (auto) (0-0.2) 10^3/ul Absolute Nucleated RBC 10^3/ul Nucleated RBC % Sodium (135-145) mmol/L Potassium (3.5-5.0) mmol/L Chloride (101-111) mmol/L Carbon Dioxide (22-32) mmol/L Anion Gap (2-11) mmol/L BUN (6-24) mg/dL Creatinine (0.67-1.17) mg/dL Est GFR ( Amer) (>60) Est GFR (Non-Af Amer) (>60) BUN/Creatinine Ratio (8-20) Glucose (70-100) mg/dL Lactic Acid (0.5-2.0) mmol/L Calcium (8.6-10.3) mg/dL Magnesium (1.9-2.7) mg/dL Total Bilirubin (0.2-1.0) mg/dL AST (13-39) U/L ALT (7-52) U/L Alkaline Phosphatase (34-104) U/L Total Protein (6.4-8.9) g/dL Albumin (3.2-5.2) g/dL Globulin (2-4) g/dL Albumin/Globulin Ratio (1-3) Urine Color Yellow Urine Appearance Cloudy Urine pH 8.0 (5-9) Ur Specific [place] 1.016 (1.010-1.030) Urine Protein Negative (Negative) Urine Ketones Negative (Negative) Urine Blood Negative (Negative) Urine Nitrate Negative (Negative) Urine Bilirubin Negative (Negative) Urine Urobilinogen Negative (Negative) Ur Leukocyte Esterase Negative (Negative) Urine Glucose Negative (Negative) Result Diagrams: 12/07/17 17:25 12/07/17 17:25 Lab Statement: Any lab studies that have been ordered have been reviewed, and results considered in the medical decision making process. Re-Evaluation - Re-Evaluation 1 Re-Evaluation Time: 20:11 Comment: Patient states he feels much better after Librium. Palm still moist. Mild tremor in left hand. No longer tachycardic Altered Mental Statu Course/Dx - Course Course Of Treatment: Patient with history of 8-10 drinks every night for over 3 years complains of anxiety since stopping cold turkey 2 days ago. Patient does admit to 1 16 ounce can of beer last night, and a couple sips of liquor today after panic attacks 2 lasting 30 seconds each. No active panic attack here in the ED. Denies fever, HESTER, N/V, seizures, hallucinations, tremors, abdominal pain, SI, HI, CP, SOB, change in urinary BM. Patient eating and drinking normally. Patient had initial interview with [place] [facility], and has an appointment starting next Sunday to start outpatient treatment. Patient was told by [facility] [place] to come to the ED if he started showing withdrawal symptoms. Medical history is HTN, EtOH abuse. Nonsmoker, which is nicotine gum. Denies use of illegal drugs. Patient nontoxic appearing. Very mild facial glistening. Mild observable tremor to bilateral hands. Patient alert and oriented, responding appropriately. Dr. Barrera consulted on patient with me. Patient mildly tachycardic, elevated BP. Trial of Librium 50 MG by mouth here in the ED to see how patient tolerates. Discussed patient with Dr. Agustin who recommends admission. Discussed admission with patient who agrees. - Diagnoses Provider Diagnoses: ETOH abuse - Provider Notifications Discussed Care Of Patient With: Kaleb Agustin Time Discussed With Above Provider: 20:12 Instructed by Provider To: Admit As Inpatient Discharge - Sign-Out/Discharge Documenting (check all that apply): Discharge/Admit/Transfer - Discharge Plan Condition: Stable Disposition: ADMITTED TO [facility] Referrals: Castillo Quiroz MD [Primary Care Provider] - - Billing Disposition and Condition Condition: STABLE Disposition: Admitted to [facility]
[2017-12-07] MEDS ORDERED: Acetaminophen TAB* 325 MG PO PRN (21:46)
[2017-12-07] MEDS ORDERED: Ondansetron INJ* 2 MG/ML VIAL IV PRN (21:46)
[2017-12-07] MEDS ORDERED: Thiamine IV* 100 MG/ML 2 ML VIAL IM ONE (21:46)
[2017-12-07] MEDS ORDERED: Melatonin 3 MG TAB PO PRN (21:46)
[2017-12-07] MEDS ORDERED: Albuterol HFA INHALER* 8 gm MDI INH PRN (21:48)
[2017-12-07] MEDS ORDERED: LORazepam INJ* 2 MG/ML 1 ML VIAL IV PUSH SCH (22:00)
[2017-12-07] MEDS ORDERED: amLODIPine TAB* 5 MG PO ONE (22:20)
[2017-12-07] MEDS: NS 0.9% 1000 ML* 1,000 ML IV SCH (23:37)
--- NOTE | 2017-12-08 04:55 | HP ---
H&P (Free Text) History and Physical: PCP: Willie Archbold - [facility] Date: 12/07/2017 CC: alcohol withdrawal HPI: Mr Leos is a 42YO male HX alcoholism typically drinking 1/2 pint plus of vodka daily for the past several years. He had only had 2 beers over the last 36-48h. He has no history of withdrawal seizures. He has been feeling tremulous and "foggy", but denies hallucinations, syncope, palpitations, or other issues. 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 status FamHx: Mother: alive, 60s, healthy; Father: alive, 60s, polysubstance abuse; Brother: at 01 08 heroin OD ROS: as above, otherwise reviewed and all were negative vitals: Vital Signs Temp 36.6 C 12/08/17 03:22 Pulse 73 12/08/17 03:22 Resp 16 12/08/17 03:22 BP 133/80 12/08/17 03:22 Pulse Ox 97 12/08/17 03:22 Intake & Output 12/07/17 12/07/17 12/08/17 11:59 23:59 11:59 Intake Total 1000 Balance 1000 Weight 88.995 kg Intake: IV Fluids 1000 Constitutional: NAD, normally developed, overweight white male HEENM: atraumatic; sclera/conjunctiva: anicteric/mildly injected OU; hearing: clinically intact; oropharynx: clear,mucosa moist Neck: soft tissue: non-tender; thyroid: normal Pulmonary: clear to auscultation bilaterally, good aeration, no accessory muscle use CV: RR/RR, normal S1S2, no carotid bruit, no jugular venous distention, 2+ B DP/ PT, no edema Abdominal: soft, non-distended, non-tender, no rebound/guarding/rigidity, normoactive bowel sounds, no hepatosplenomegaly or masses, no costovertebral angle tenderness Musculoskeletal: general: grossly intact, non-tender Integumental: normal appearance and texture of expose skin Psychiatric orientation: AA&O to PPS affect: calm mood: cooperative eye contact: fair content: reliable responses: timely insight: fair to good Testing: Lab Results 12/07/17 12/07/17 12/07/17 Range/Units 17:25 17:25 17:25 WBC 6.9 (3.5-10.8) 10^3/ul RBC 4.49 (4.00-5.40) 10^6/ul Hgb 14.9 (14.0-18.0) g/dl Hct 43 (42-52) % MCV 95 H (80-94) fL MCH 33 H (27-31) pg MCHC 35 (31-36) g/dl RDW 13 (10.5-15) % Plt Count 198 (150-450) 10^3/ul MPV 8.2 (7.4-10.4) um3 Neut % (Auto) 68.8 (38-83) % Lymph % (Auto) 19.1 L (25-47) % [place] % (Auto) 8.6 H (0-7) % Eos % (Auto) 3.0 (0-6) % Baso % (Auto) 0.5 (0-2) % Absolute Neuts (auto) 4.8 (1.5-7.7) 10^3/ul Absolute Lymphs (auto) 1.3 (1.0-4.8) 10^3/ul Absolute Monos (auto) 0.6 (0-0.8) 10^3/ul Absolute Eos (auto) 0.2 (0-0.6) 10^3/ul Absolute Basos (auto) 0 (0-0.2) 10^3/ul Absolute Nucleated RBC 0 10^3/ul Nucleated RBC % 0 Sodium 139 (135-145) mmol/L Potassium 4.1 (3.5-5.0) mmol/L Chloride 101 (101-111) mmol/L Carbon Dioxide 30 (22-32) mmol/L Anion Gap 8 (2-11) mmol/L BUN 16 (6-24) mg/dL Creatinine 0.69 (0.67-1.17) mg/dL Est GFR ( Amer) 153.7 (>60) Est GFR (Non-Af Amer) 127.0 (>60) BUN/Creatinine Ratio 23.2 H (8-20) Glucose 114 H (70-100) mg/dL Lactic Acid 1.0 (0.5-2.0) mmol/L Calcium 10.0 (8.6-10.3) mg/dL Magnesium 1.9 (1.9-2.7) mg/dL Total Bilirubin 0.80 (0.2-1.0) mg/dL AST 44 H (13-39) U/L ALT 63 H (7-52) U/L Alkaline Phosphatase 46 (34-104) U/L Total Protein 7.9 (6.4-8.9) g/dL Albumin 4.7 (3.2-5.2) g/dL Globulin 3.2 (2-4) g/dL Albumin/Globulin Ratio 1.5 (1-3) Urine Color Urine Appearance Urine pH (5-9) Ur Specific [place] (1.010-1.030) Urine Protein (Negative) Urine Ketones (Negative) Urine Blood (Negative) Urine Nitrate (Negative) Urine Bilirubin (Negative) Urine Urobilinogen (Negative) Ur Leukocyte Esterase (Negative) Urine Glucose (Negative) Serum Alcohol (<10) mg/dL 12/07/17 12/07/17 Range/Units 17:25 18:58 WBC (3.5-10.8) 10^3/ul RBC (4.00-5.40) 10^6/ul Hgb (14.0-18.0) g/dl Hct (42-52) % MCV (80-94) fL MCH (27-31) pg MCHC (31-36) g/dl RDW (10.5-15) % Plt Count (150-450) 10^3/ul MPV (7.4-10.4) um3 Neut % (Auto) (38-83) % Lymph % (Auto) (25-47) % [place] % (Auto) (0-7) % Eos % (Auto) (0-6) % Baso % (Auto) (0-2) % Absolute Neuts (auto) (1.5-7.7) 10^3/ul Absolute Lymphs (auto) (1.0-4.8) 10^3/ul Absolute Monos (auto) (0-0.8) 10^3/ul Absolute Eos (auto) (0-0.6) 10^3/ul Absolute Basos (auto) (0-0.2) 10^3/ul Absolute Nucleated RBC 10^3/ul Nucleated RBC % Sodium (135-145) mmol/L Potassium (3.5-5.0) mmol/L Chloride (101-111) mmol/L Carbon Dioxide (22-32) mmol/L Anion Gap (2-11) mmol/L BUN (6-24) mg/dL Creatinine (0.67-1.17) mg/dL Est GFR ( Amer) (>60) Est GFR (Non-Af Amer) (>60) BUN/Creatinine Ratio (8-20) Glucose (70-100) mg/dL Lactic Acid (0.5-2.0) mmol/L Calcium (8.6-10.3) mg/dL Magnesium (1.9-2.7) mg/dL Total Bilirubin (0.2-1.0) mg/dL AST (13-39) U/L ALT (7-52) U/L Alkaline Phosphatase (34-104) U/L Total Protein (6.4-8.9) g/dL Albumin (3.2-5.2) g/dL Globulin (2-4) g/dL Albumin/Globulin Ratio (1-3) Urine Color Yellow Urine Appearance Cloudy Urine pH 8.0 (5-9) Ur Specific [place] 1.016 (1.010-1.030) Urine Protein Negative (Negative) Urine Ketones Negative (Negative) Urine Blood Negative (Negative) Urine Nitrate Negative (Negative) Urine Bilirubin Negative (Negative) Urine Urobilinogen Negative (Negative) Ur Leukocyte Esterase Negative (Negative) Urine Glucose Negative (Negative) Serum Alcohol < 10 (<10) mg/dL ECG, personally reviewed: sinus tachycardia rate 107, no ischemia Impression: 42M active alcoholism in early withdrawal DIAGNOSIS & PLAN Primary alcohol withdrawal : WA protocol Secondary HTN : continue amlodipine Admission Rational: observation for stabilization of early ETOH withdrawal DVTp: LUAN Code Status: full
[2017-12-08] MEDS: NS 0.9% 1000 ML* 1,000 ML IV SCH (05:09)
[2017-12-08] MEDS ORDERED: Omeprazole CAP* 20 MG PO SCH (06:00)
[2017-12-08] MEDS ORDERED: Folic Acid TAB* 1 MG PO SCH (09:00)
[2017-12-08] MEDS ORDERED: Thiamine TAB* 100 MG TAB PO SCH (09:00)
[2017-12-08] MEDS ORDERED: Multivitamins/Minerals TAB PO SCH (09:00)
[2017-12-08] MEDS ORDERED: amLODIPine TAB* 5 MG PO SCH (09:00)
[2017-12-08 09:16] VITALS: BP 138/91
--- NOTE | 2017-12-08 11:27 | DS ---
CC: Dr. Quiroz* DISCHARGE SUMMARY: DATE OF ADMISSION: 12/08/17 DATE OF DISCHARGE: 12/08/17 PRIMARY CARE PROVIDER: Dr. Quiroz. DISCHARGE DIAGNOSIS: Alcohol withdrawal with mild symptoms. DISCHARGE MEDICATIONS: Unchanged from admission which include: 1. Amlodipine 5 mg daily. 2. Albuterol inhaler 2 puffs every 6 hours p.r.n. HOSPITALIZATION COURSE: Josue Leos is a 42-year-old male with history of alcohol abuse who had not been drinking for 2-1/2 days before presenting to the emergency department on 12/08/17 as directed by his CARS counselor from the rehab services. The patient apparently exhibited only mild symptoms of withdrawal but was placed on overnight observation. During his hospital stay, he required no benzodiazepines and by the time of discharge he exhibited no further symptoms of withdrawal. He is going to be discharged home with recommendation to follow up with his CARS advisor as well as Anonymous Alcoholics meetings. PHYSICAL EXAM AT THE TIME OF DISCHARGE: Blood pressure 138/91, heart rate of 91 and regular, respiratory rate 18, oxygen saturation 97% on room air, temperature 99.5. General: The patient is a very pleasant 42-year-old male who is in no acute distress. Alert, awake and oriented x3. HEENT: Head atraumatic, normocephalic. Eyes: Pupils equal, round, and reactive to light and accommodation. Oropharynx clear. Mucosa moist. Neck: Supple. No JVD. No bruits bilaterally. Cardiovascular: Regular rate and rhythm. No murmur. Respiratory: Scant wheezes in right mid lung, otherwise clear. Abdomen: Soft and nontender. Bowel sounds present in all 4 quadrants. Extremities: There is no edema. Pulses +2 bilaterally. No clubbing or cyanosis. On neuro evaluation, speech clear. Cranial nerves II through XII grossly intact. Motor strength is 5/5 bilaterally. Psychiatric evaluation: The patient is pleasant, cooperative with evaluation. Oriented x3 with no evidence of anxiety or depression. Please note that this is a short summary of the patient's hospitalization. Please refer to further medical records for details. The patient was also advised to follow up with Dr. Quiroz in 4 to 7 days after discharge. [id number]/[facility] #: [id number] [facility]
--- NOTE | 2017-12-11 14:51 | CONSULT ---
Rula Barnard Rebecca, scribed for Bandar Barrera MD on 12/07/17 at 1844 . Consult Consult: Evaluated the pt with JUAN LUIS Martin. He has mild tremors and is tachycardic with signs and symptoms of early EtOH withdrawal. We offered inpatient admission for IV benzos. Prefers to be managed as an outpatient and will give a trial of Librium in the ED and see how he responds. The documentation as recorded by the Rula feng Rebecca accurately reflects the service I personally performed and the decisions made by , Bandar Barrera MD.
== END 2017-12-08 11:10 | disposition home or self-care (01) ==
LOC: ED 16:24 → MED 21:45
PROVIDERS: ADMIT Hospitalist; ATTEND Internal Medicine
DX: F10.239 Alcohol dependence with withdrawal, unspecified (principal); I10 Essential (primary) hypertension; R00.0 Tachycardia, unspecified; Z79.899 Other long term (current) drug therapy; F17.200 Nicotine dependence, unspecified, uncomplicated; Z88.8 Allergy status to other drugs, medicaments and biological substances
CPT/HCPCS: 36415; 80053; 80320; 81003; 83605; 83735; 85025; 93005; 96360; 96361; 96372; 99283; A9270-GY; G0378; G0480; J3411

== ENCOUNTER 2023-06-14 10:49 | Observation (INO) ==
[2023-06-14 11:29] LABS: ABS Eosinophils 0.1 10^3/uL (0.0-0.5); ABS Lymphocytes 1.5 10^3/uL (1.0-4.8); ABS Monocytes 1.2 10^3/uL (0.0-1.1); ABS Neutrophils 7.8 10^3/uL (1.5-7.6); ABS Nucleated RBC 0.02 10^3/ul; Eosinophil % 0.8 %; Hematocrit 48.1 % (38-53); Lymphocyte % 13.9 %; Mean Corpuscular Hemoglobin 34.1 pg (27-33); Mean Corpuscular Hgb Conc 35.3 g/dL (31-36); Mean Corpuscular Volume 96.8 fL (80-97); Mean Platelet Volume 9.3 fL (7.5-11.2); Nucleated Red Blood Cells % 0.1 %/100WBC (0.0-0.8); Platelet Count 111 10^3/uL (150-450); Red Blood Count 4.97 10^6/uL (4.06-5.63); Red Cell Distribution Width 12.5 % (12-17); White Blood Count 10.7 10^3/uL (3.6-10.2)
[2023-06-14 11:41] LABS: INR 1.41 (0.83-1.13)
[2023-06-14 11:50] LABS: Creatinine, Serum 0.56 mg/dL (0.67-1.17); Globulin 4.1 g/dL (2-4); Total Bilirubin 2.3 mg/dL (0.2-1.0); Total Protein 8.1 g/dL (6.4-8.9); eGFR CKD-EPI 123.1 (>60)
[2023-06-14 12:44] LABS: High Sensitivity Troponin 1 Hr 4 pg/mL (<20)
[2023-06-14] MEDS ORDERED: Iohexol 350 (CONTRAST) 500 ML MDV IV ONE (13:16)
[2023-06-14] MEDS ORDERED: Ondansetron 4 mg VIAL 2 MG/ML 2 ml VIAL IV PRN (16:46)
[2023-06-14] MEDS ORDERED: Calcium Carb (TUMS) 500 mg CHEW TAB PO PRN (16:59)
[2023-06-14] MEDS ORDERED: D5W 1/2 NS 1000 ml BAG 1,000 ML IV SCH (17:00)
[2023-06-14] MEDS: Piperacillin/Tazobac 3.375 BAG 3.375 GM/100 ML BAG IV SCH (17:30)
[2023-06-14 17:43] LABS: C Reactive Protein 92.96 mg/L (<8.01)
[2023-06-15] MEDS: Piperacillin/Tazobac 3.375 BAG 3.375 GM/100 ML BAG IV SCH (01:42)
[2023-06-15 05:12] LABS: ABS Basophils 0.1 10^3/uL (0.0-0.1); ABS Eosinophils 0.1 10^3/uL (0.0-0.5); ABS Lymphocytes 1.4 10^3/uL (1.0-4.8); ABS Monocytes 1.2 10^3/uL (0.0-1.1); ABS Neutrophils 7.2 10^3/uL (1.5-7.6); Eosinophil % 0.6 %; Hematocrit 44.3 % (38-53); Lymphocyte % 13.8 %; Mean Corpuscular Hgb Conc 36.2 g/dL (31-36); Mean Corpuscular Volume 96.8 fL (80-97); Mean Platelet Volume 9.7 fL (7.5-11.2); Platelet Count 106 10^3/uL (150-450); Red Blood Count 4.58 10^6/uL (4.06-5.63); Red Cell Distribution Width 12.8 % (12-17); White Blood Count 9.9 10^3/uL (3.6-10.2)
[2023-06-15 05:30] LABS: C Reactive Protein 112.08 mg/L (<8.01); Calcium 8.7 mg/dL (8.6-10.3); Creatinine, Serum 0.62 mg/dL (0.67-1.17); Potassium 3.7 mmol/L (3.5-5.0); eGFR CKD-EPI 119.4 (>60)
[2023-06-15 09:13] VITALS: BP 119/72
== END 2023-06-15 09:13 | disposition home or self-care (01) ==
LOC: EDHOLD 10:49 → ED 10:49 → EDHOLD 06-15 09:12
PROVIDERS: ADMIT Surgery Surgical Critical Care; ATTEND Surgery Surgical Critical Care

== ENCOUNTER 2023-06-18 09:05 | Observation (INO) ==
[2023-06-18] MEDS ORDERED: Lactated Ringers 1000 ml BAG 1,000 ML IV ONE (10:20)
[2023-06-18] MEDS ORDERED: Ondansetron 4 mg VIAL 2 MG/ML 2 ml VIAL IV ONE ×2 (10:23→10:46)
[2023-06-18 10:47] LABS: Hematocrit 40.4 % (38-53); Hemoglobin 14.3 g/dL (13.2-16.3); Mean Corpuscular Hemoglobin 34.1 pg (27-33); Mean Corpuscular Hgb Conc 35.4 g/dL (31-36); Mean Corpuscular Volume 96.3 fL (80-97); Mean Platelet Volume 10.1 fL (7.5-11.2); Platelet Count 109 10^3/uL (150-450); Red Cell Distribution Width 12.5 % (12-17); White Blood Count 9.8 10^3/uL (3.6-10.2)
[2023-06-18 11:24] LABS: ABS Lymphocytes 0.6 10^3/uL (1.0-4.8); ABS Monocytes 1.1 10^3/uL (0.0-1.1); ABS Neutrophils 8.1 10^3/uL (1.5-7.6); ABS Nucleated RBC 0.01 10^3/ul; Eosinophil % 0.4 %; Lymphocyte % 5.8 %; Nucleated Red Blood Cells % 0.1 %/100WBC (0.0-0.8); RBC Morphology Normal (Normal)
[2023-06-18] MEDS ORDERED: Ondansetron 4 mg VIAL 2 MG/ML 2 ml VIAL IV PRN ×2 (11:24→17:04)
[2023-06-18] MEDS ORDERED: HYDROmorphone 1 MG/1 ML SYRINGE IV SLOW PU PRN (11:24)
[2023-06-18 11:25] LABS: Albumin/Globulin Ratio 0.9 (1-3); C Reactive Protein 210.14 mg/L (<8.01); Calcium 8.4 mg/dL (8.6-10.3); Creatinine, Serum 0.7 mg/dL (0.67-1.17); Globulin 3.4 g/dL (2-4); Potassium 3.4 mmol/L (3.5-5.0); Total Bilirubin 1.7 mg/dL (0.2-1.0); Total Protein 6.4 g/dL (6.4-8.9); eGFR CKD-EPI 115.1 (>60)
[2023-06-18] MEDS ORDERED: HYDROmorphone 0.5 MG/0.5 ML SYRINGE IV SLOW PU PRN ×2 (11:28→17:05)
[2023-06-18] MEDS ORDERED: Piperacillin/Tazobac 3.375 BAG 3.375 GM/100 ML BAG IV ONE (11:41)
[2023-06-18 11:57] LABS: Erythrocyte Sed Rate 51 mm/Hr (0-14)
[2023-06-18] MEDS ORDERED: Lidocaine 1% w EPI 1:100,000 MDV 20 ML VIAL ONE (15:07)
[2023-06-18] MEDS ORDERED: Ondansetron 4 mg VIAL 2 MG/ML 2 ml VIAL ONE (15:43)
[2023-06-18] MEDS ORDERED: Glycopyrrolate IV 0.2 MG/ML 1 ML VIAL ONE (15:43)
[2023-06-18] MEDS ORDERED: Propofol 10 MG/ML 20 ML BTL ONE (15:43)
[2023-06-18] MEDS ORDERED: Dexamethasone IV 4 MG/ML VIAL 1 ml VIAL ONE (15:43)
[2023-06-18] MEDS ORDERED: Lidocaine 2% PF 5 ML VIAL ONE (15:44)
[2023-06-18] MEDS ORDERED: Succinylcholine 200 mg VIAL 20 mg/ml 10 ml VIAL (200 mg) ONE (15:44)
[2023-06-18] MEDS ORDERED: fentaNYL 100 mcg/2 ml 50 MCG/ML VIAL ONE (15:50)
[2023-06-18] MEDS ORDERED: Piperacillin/Tazobac 3.375 BAG 3.375 GM/100 ML BAG IV SCH (16:00)
[2023-06-18] MEDS ORDERED: Phenylephrine 40 mcg/mL 10mL (400mcg) SYRINGE ONE (16:15)
[2023-06-18] MEDS ORDERED: Rocuronium 50 mg VIAL 10 mg/ml 5 ml VIAL (50 mg) ONE (16:26)
[2023-06-18] MEDS ORDERED: fentaNYL 100 mcg/2 ml 50 MCG/ML VIAL IV PRN (17:04)
[2023-06-18] MEDS ORDERED: HYDROmorphone 1 MG/1 ML SYRINGE IV PRN (17:04)
[2023-06-18] MEDS ORDERED: Naloxone 0.4 mg VIAL 0.4 mg/ml 1 ml VIAL IV PRN (17:04)
[2023-06-18] MEDS ORDERED: Albuterol HFA INHALER 8 gm MDI INH PRN (17:09)
[2023-06-18] MEDS: Piperacillin/Tazobac 3.375 BAG 3.375 GM/100 ML BAG IV SCH (17:56)
[2023-06-19] MEDS: Piperacillin/Tazobac 3.375 BAG 3.375 GM/100 ML BAG IV SCH (01:38)
[2023-06-19 07:08] LABS: Calcium 8.2 mg/dL (8.6-10.3); Creatinine, Serum 0.57 mg/dL (0.67-1.17); Potassium 4.1 mmol/L (3.5-5.0); eGFR CKD-EPI 122.4 (>60)
[2023-06-19] MEDS ORDERED: Piperacillin/Tazobac 3.375 BAG 3.375 GM/100 ML BAG IV ONE (10:00)
[2023-06-19 10:39] VITALS: BP 130/78
== END 2023-06-19 11:15 | disposition home or self-care (01) ==
LOC: ED 09:05 → EDHOLD 09:05 → MED 13:19
PROVIDERS: ADMIT Surgery; ATTEND Surgery
PROC: O.GEI&D (2023-06-18 16:30)

== ENCOUNTER 2023-06-25 11:03 | Observation (INO) ==
[2023-06-25] MEDS ORDERED: Albuterol HFA INHALER 8 gm MDI INH PRN (12:47)
[2023-06-25] MEDS ORDERED: Lactated Ringers 1000 ml BAG 1,000 ML IV SCH (13:00)
[2023-06-25 13:08] LABS: ABS Basophils 0.3 10^3/uL (0.0-0.1); ABS Lymphocytes 1.2 10^3/uL (1.0-4.8); ABS Monocytes 0.8 10^3/uL (0.0-1.1); ABS Neutrophils 7.6 10^3/uL (1.5-7.6); ABS Nucleated RBC 0.01 10^3/ul; Eosinophil % 0.5 %; Hematocrit 43.5 % (38-53); Lymphocyte % 11.7 %; Mean Corpuscular Hemoglobin 33.4 pg (27-33); Mean Corpuscular Hgb Conc 34.4 g/dL (31-36); Nucleated Red Blood Cells % 0.1 %/100WBC (0.0-0.8); Platelet Count 220 10^3/uL (150-450); Red Blood Count 4.48 10^6/uL (4.06-5.63); Red Cell Distribution Width 13.2 % (12-17); White Blood Count 9.9 10^3/uL (3.6-10.2)
[2023-06-25] MEDS ORDERED: Iohexol 350 (CONTRAST) 500 ML MDV IV ONE (13:19)
[2023-06-25] MEDS: HYDROmorphone 0.5 MG/0.5 ML SYRINGE IV SLOW PU PRN ×2 (13:20→17:22)
[2023-06-25 13:25] LABS: Calcium 8.2 mg/dL (8.6-10.3); Creatinine, Serum 0.59 mg/dL (0.67-1.17); Potassium 4.3 mmol/L (3.5-5.0); eGFR CKD-EPI 121.2 (>60)
[2023-06-25] MEDS: Ciprofloxacin 400mg IVPREMIX 400 MG/200 ML BAG IVPB SCH (14:03)
[2023-06-25] MEDS: NS 0.9% 1000 ml BAG 1,000 ML IV SCH ×2 (14:58→22:50)
[2023-06-25] MEDS: metroNIDAZOLE IV 500 MG/100ML 500 MG/100 ML BAG IVPB SCH ×2 (15:19→21:42)
[2023-06-25] MEDS: HYDROmorphone 1 MG/1 ML SYRINGE IV SLOW PU PRN (20:10)
[2023-06-26] MEDS: HYDROmorphone 1 MG/1 ML SYRINGE IV SLOW PU PRN (00:15)
[2023-06-26] MEDS: Ciprofloxacin 400mg IVPREMIX 400 MG/200 ML BAG IVPB SCH ×2 (00:15→13:13)
[2023-06-26] MEDS: metroNIDAZOLE IV 500 MG/100ML 500 MG/100 ML BAG IVPB SCH ×3 (05:28→21:28)
[2023-06-26] MEDS: HYDROmorphone 0.5 MG/0.5 ML SYRINGE IV SLOW PU PRN (05:28)
[2023-06-26] MEDS ORDERED: HYDROmorphone 0.5 MG/0.5 ML SYRINGE IV SLOW PU PRN (08:34)
[2023-06-26] MEDS ORDERED: HYDROmorphone 0.5 MG/0.5 ML SYRINGE IV SLOW PU ONE (08:35)
[2023-06-26] MEDS ORDERED: HYDROmorphone 0.5 MG/0.5 ML SYRINGE ONE (08:38)
[2023-06-26] MEDS: NS 0.9% 1000 ml BAG 1,000 ML IV SCH ×2 (08:44→19:54)
[2023-06-27] MEDS: Ciprofloxacin 400mg IVPREMIX 400 MG/200 ML BAG IVPB SCH (00:49)
[2023-06-27] MEDS: metroNIDAZOLE IV 500 MG/100ML 500 MG/100 ML BAG IVPB SCH (05:40)
[2023-06-27] MEDS: NS 0.9% 1000 ml BAG 1,000 ML IV SCH (05:41)
[2023-06-27 06:27] VITALS: BP 109/74
== END 2023-06-27 09:35 | disposition home or self-care (01) ==
LOC: SSU
PROVIDERS: ADMIT Surgery; ATTEND Surgery

== ENCOUNTER 2023-08-18 11:43 | Observation (INO) ==
[2023-08-18] MEDS: Ondansetron 4 mg VIAL 2 MG/ML 2 ml VIAL IV ONE (14:08)
[2023-08-18] MEDS: cefTRIAXone 2 gm/50 mL D5W 2 GM/50 ML BAG IV ONE (14:08)
[2023-08-18 14:14] LABS: Hematocrit 40.4 % (38-53); Hemoglobin 14.2 g/dL (13.2-16.3); Mean Corpuscular Hemoglobin 33.3 pg (27-33); Mean Corpuscular Hgb Conc 35.1 g/dL (31-36); Platelet Count 128 10^3/uL (150-450); Red Blood Count 4.25 10^6/uL (4.06-5.63); Red Cell Distribution Width 13.3 % (12-17); White Blood Count 13.3 10^3/uL (3.6-10.2)
[2023-08-18 14:27] LABS: Activated Partial Thrombo Time 32.9 seconds (26.0-38.0); INR 1.85 (0.83-1.13)
[2023-08-18] MEDS: Lactated Ringers SEPSIS* BAG 2,120 ML IV ONE (14:28)
[2023-08-18] MEDS: metroNIDAZOLE IV 500 MG/100ML 500 MG/100 ML BAG IVPB ONE (14:33)
[2023-08-18] MEDS: NS 0.9% 1000 ml BAG 2,000 ML IV ONE (14:33)
[2023-08-18 15:12] LABS: Albumin 3.4 g/dL (3.2-5.2); Albumin/Globulin Ratio 1.1 (1-3); C Reactive Protein 173.63 mg/L (<8.01); Calcium 8.1 mg/dL (8.6-10.3); Creatinine, Serum 1.06 mg/dL (0.67-1.17); Globulin 3.2 g/dL (2-4); Potassium 3.8 mmol/L (3.5-5.0); Total Bilirubin 3.6 mg/dL (0.2-1.0); Total Protein 6.6 g/dL (6.4-8.9); eGFR CKD-EPI 87.7 (>60)
[2023-08-18] MEDS: Iohexol 350 (CONTRAST) 500 ML MDV IV ONE (15:34)
[2023-08-18 15:46] LABS: Urine Appearance Turbid; Urine Bilirubin Negative (Negative); Urine Blood Trace (Negative); Urine Color Yellow; Urine Glucose Negative (Negative); Urine Ketones Negative (Negative); Urine Nitrite Negative (Negative); Urine Protein Trace (Negative); Urine Specific Gravity 1.009 (1.002-1.030); Urine Urobilinogen 1+ (Negative); Urine pH 5.5 (5.0-8.0)
[2023-08-18 15:46] LABS: High Sensitivity Troponin 1 Hr < 3 pg/mL (<20)
[2023-08-18 15:51] LABS: ABS Lymphocytes 0.9 10^3/uL (1.0-4.8); ABS Monocytes 1.7 10^3/uL (0.0-1.1); ABS Neutrophils 10.7 10^3/uL (1.5-7.6); ABS Nucleated RBC 0.01 10^3/ul; Lymphocyte % 6.5 %
[2023-08-18] MEDS: Vancomycin 1,500 MG in NS 0.9% 250 ml 250 ML IVPB ONE (16:12)
[2023-08-19] MEDS ORDERED: Albuterol HFA INHALER 8 gm MDI INH PRN (03:06)
[2023-08-19 06:15] LABS: Hematocrit 37.1 % (38-53); Hemoglobin 12.8 g/dL (13.2-16.3); Mean Corpuscular Hemoglobin 32.8 pg (27-33); Mean Corpuscular Hgb Conc 34.4 g/dL (31-36); Mean Corpuscular Volume 95.4 fL (80-97); Mean Platelet Volume 8.7 fL (7.5-11.2); Platelet Count 118 10^3/uL (150-450); Red Blood Count 3.89 10^6/uL (4.06-5.63); Red Cell Distribution Width 13.2 % (12-17); White Blood Count 9.9 10^3/uL (3.6-10.2)
[2023-08-19 06:21] LABS: INR 1.69 (0.83-1.13)
[2023-08-19 07:00] LABS: Calcium 7.6 mg/dL (8.6-10.3); Creatinine, Serum 0.53 mg/dL (0.67-1.17); Magnesium 1.5 mg/dL (1.9-2.7); Potassium 3.5 mmol/L (3.5-5.0); eGFR CKD-EPI 125.2 (>60)
[2023-08-19 09:33] LABS: Direct Bilirubin 0.6 mg/dL (0.03-0.18); Globulin 3.1 g/dL (2-4); Indirect Bilirubin 0.7 mg/dL (0.3-1.0); Total Bilirubin 1.3 mg/dL (0.2-1.0); Total Protein 6.1 g/dL (6.4-8.9)
[2023-08-19] MEDS: Magnesium Sulfate 2 gm BAG 2 GM/50 ML BAG IVPB SCH (09:54)
[2023-08-19] MEDS: cefTRIAXone 1 gm/50 mL D5W 1 GM/50 ML BAG IV SCH (12:25)
[2023-08-20 06:35] LABS: ABS Eosinophils 0.2 10^3/uL (0.0-0.5); ABS Lymphocytes 1.3 10^3/uL (1.0-4.8); ABS Monocytes 0.6 10^3/uL (0.0-1.1); ABS Neutrophils 4.7 10^3/uL (1.5-7.6); ABS Nucleated RBC 0.01 10^3/ul; Eosinophil % 2.7 %; Hematocrit 37.6 % (38-53); Hemoglobin 12.8 g/dL (13.2-16.3); Lymphocyte % 18.6 %; Mean Corpuscular Hemoglobin 32.6 pg (27-33); Mean Corpuscular Hgb Conc 34.1 g/dL (31-36); Mean Corpuscular Volume 95.3 fL (80-97); Mean Platelet Volume 8.9 fL (7.5-11.2); Nucleated Red Blood Cells % 0.1 %/100WBC (0.0-0.8); Platelet Count 139 10^3/uL (150-450); Red Blood Count 3.94 10^6/uL (4.06-5.63); Red Cell Distribution Width 12.9 % (12-17); White Blood Count 6.8 10^3/uL (3.6-10.2)
[2023-08-20 06:48] LABS: Calcium 7.6 mg/dL (8.6-10.3); Creatinine, Serum 0.53 mg/dL (0.67-1.17); Magnesium 1.7 mg/dL (1.9-2.7); Potassium 3.4 mmol/L (3.5-5.0); eGFR CKD-EPI 125.2 (>60)
[2023-08-20] MEDS: Potassium Chlor 20 meq TAB.ER PO ONE (08:09)
[2023-08-20 10:22] VITALS: BP 121/88
== END 2023-08-20 13:20 | disposition home or self-care (01) ==
LOC: EDHOLD 11:43 → ED 11:43 → SUATTDRO 18:41 → MED 22:43
PROVIDERS: ADMIT Hospitalist; ATTEND Hospitalist

== ENCOUNTER 2023-09-17 09:16 | Observation (INO) ==
[2023-09-17] MEDS: Morphine 4 MG/ML VIAL (1 ml) IV ONE ×2 (12:06→14:54)
[2023-09-17 12:13] LABS: ABS Basophils 0.1 10^3/uL (0.0-0.1); ABS Lymphocytes 1.3 10^3/uL (1.0-4.8); ABS Monocytes 1.2 10^3/uL (0.0-1.1); ABS Neutrophils 7.9 10^3/uL (1.5-7.6); ABS Nucleated RBC 0.02 10^3/ul; Eosinophil % 0.4 %; Hemoglobin 14.5 g/dL (13.2-16.3); Lymphocyte % 12.3 %; Mean Corpuscular Hgb Conc 34.6 g/dL (31-36); Mean Corpuscular Volume 92.7 fL (80-97); Mean Platelet Volume 8.6 fL (7.5-11.2); Nucleated Red Blood Cells % 0.2 %/100WBC (0.0-0.8); Platelet Count 118 10^3/uL (150-450); Red Blood Count 4.53 10^6/uL (4.06-5.63); Red Cell Distribution Width 13.7 % (12-17); White Blood Count 10.5 10^3/uL (3.6-10.2)
[2023-09-17 12:47] LABS: Albumin 3.9 g/dL (3.2-5.2); Albumin/Globulin Ratio 1.1 (1-3); C Reactive Protein 137.16 mg/L (<8.01); Creatinine, Serum 0.56 mg/dL (0.67-1.17); Globulin 3.4 g/dL (2-4); Potassium 3.9 mmol/L (3.5-5.0); Total Bilirubin 1.4 mg/dL (0.2-1.0); Total Protein 7.3 g/dL (6.4-8.9); eGFR CKD-EPI 123.1 (>60)
[2023-09-17] MEDS: Iohexol 300 (CONTRAST) 10 ML SDV IV ONE (13:21)
[2023-09-17] MEDS: Piperacillin/Tazobac 3.375 BAG 3.375 GM/100 ML BAG IV ONE (14:54)
[2023-09-17] MEDS ORDERED: fentaNYL 100 mcg/2 ml 50 MCG/ML VIAL IV PRN (15:33)
[2023-09-17] MEDS ORDERED: Naloxone 0.4 mg VIAL 0.4 mg/ml 1 ml VIAL IV PRN (15:33)
[2023-09-17] MEDS ORDERED: Ondansetron 4 mg VIAL 2 MG/ML 2 ml VIAL IV PRN ×2 (15:33→19:14)
[2023-09-17] MEDS ORDERED: Lidocaine 2% PF 5 ML VIAL ONE (16:08)
[2023-09-17] MEDS ORDERED: Rocuronium 50 mg VIAL 10 mg/ml 5 ml VIAL (50 mg) ONE (16:08)
[2023-09-17] MEDS ORDERED: Glycopyrrolate IV 0.2 MG/ML 1 ML VIAL ONE (16:08)
[2023-09-17] MEDS ORDERED: Propofol 10 MG/ML 20 ML BTL ONE (16:08)
[2023-09-17] MEDS ORDERED: fentaNYL 100 mcg/2 ml 50 MCG/ML VIAL ONE (16:09)
[2023-09-17] MEDS ORDERED: Midazolam 2 mg/2 ml VIAL 1 mg/ml 2 ml VIAL (2 mg) ONE (16:09)
[2023-09-17] MEDS ORDERED: Lidocaine 1% w EPI 1:200,000 SDV 30 ML VIAL ONE (16:29)
[2023-09-17] MEDS ORDERED: Dexmedetomidine 200 mcg/2 ml 2 ml VIAL (200 mcg) ONE (16:34)
[2023-09-17] MEDS ORDERED: Albuterol HFA INHALER 8 gm MDI INH PRN (19:12)
[2023-09-17] MEDS ORDERED: Zosyn per Pharmacy NOTE FOLLOW UP SCH ×2 (20:00→20:12)
[2023-09-17] MEDS: ZOSYN 3.375 GM x ONE DOSE over 30 miuntes IV (21:19)
[2023-09-17] MEDS: HYDROmorphone 1 MG/1 ML SYRINGE IV SLOW PU PRN (21:56)
[2023-09-18] MEDS: ZOSYN 3.375 GM Q8H per EXTENDED INFUSION IV SCH (00:59)
[2023-09-18 13:54] VITALS: BP 124/82
== END 2023-09-18 15:35 | disposition home or self-care (01) ==
LOC: EDHOLD 09:16 → ED 09:16 → EDHOLD 15:50 → AA 16:18 → MED 20:33
PROVIDERS: ADMIT Surgery; ATTEND Surgery
PROC: O.GEI&D (2023-09-17 16:00)